=== PATIENT | male | born 1930 | race Two or more races ===

== ENCOUNTER 2017-03-27 11:07 | Emergency (ER) | payer OTHER ==
[~2017-03-27] VITALS: Ht 180.3 cm; Wt 78.0 kg
[~2017-03-27 11:07] MED LIST: ACET500T33 PO; ASPI-612 PO; CYAN10002 IJ; FENO145T PO; FLUT16SP2 NS; HYDR25TA9 PO; METO100T2 PO; PANT40TA3 PO
[2017-03-27 11:50] VITALS: BP 113/69
[2017-03-27 12:17] LABS: BASO # 0.1 x10^3/uL (0.0-0.2); BASO % 1 % (0-3); EOS % 2 % (0-3); HEMATOCRIT 46.9 % (39.0-53.0); HEMOGLOBIN 15.7 g/dL (13.0-17.5); LYMPH % 13 % (24-48); MEAN CORPUSCULAR HEMOGLOBIN 30 pg (25-35); MEAN CORPUSCULAR HGB CONC 34 g/dL (31-37); MEAN CORPUSCULAR VOLUME 90 fL (79-100); MONO % 8 % (0-9); NEUT % 77 % (31-73); PLATELET COUNT 132 x10^3/uL (140-400); RED BLOOD COUNT 5.19 x10^6/uL (4.30-5.70); RED CELL DISTRIBUTION WIDTH 13.3 % (11.5-14.5); WHITE BLOOD COUNT 8.1 x10^3/uL (4.0-11.0)
[2017-03-27 12:20] LABS: BILIRUBIN,URINE SMALL (NEG); GLUCOSE,URINE NEGATIVE (NEG); NITRITE,URINE NEGATIVE (NEG); PROTEIN,URINE NEGATIVE (NEG-TRACE); UROBILINOGEN,URINE 0.2 mg/dL (0.2 mg/dL)
[2017-03-27 12:26] LABS: BACTERIA,URINE 0 /HPF (0-FEW); RBC,URINE 0 /HPF (0-2); SQUAMOUS EPITHELIAL CELL,UR FEW /LPF; WBC,URINE 0 /HPF (0-4)
[2017-03-27 12:26] LABS: CALCIUM 9.4 mg/dL (8.5-10.1); CREATININE 1.2 mg/dL (0.7-1.3); GFR 57.3; POTASSIUM 4.6 mmol/L (3.5-5.1)
--- NOTE | 2017-03-27 12:28 | RAD ---
Portable chest, 03/27/2017: History: Weakness Comparison is made to a study from 03/03/2012. The heart size and pulmonary vascularity are normal. No pulmonary infiltrates are seen. There is no evidence of pleural fluid. There is a suggestion of a tiny nodule in the left base laterally. Mild spurring is present in the spine. IMPRESSION: 1. No acute cardiopulmonary abnormality is detected. 2. Possible tiny left basilar pulmonary nodule. Radiographic follow-up is suggested.
[2017-03-27 12:33] LABS: ALBUMIN 3.8 g/dL (3.4-5.0); ALBUMIN/GLOBULIN RATIO 1.3 (1.0-1.7); TOTAL PROTEIN 6.7 g/dL (6.4-8.2)
--- NOTE | 2017-03-27 12:57 | RAD ---
CT of the head without contrast, 03/27/2017: History: Weakness, fall There is moderate cerebral atrophy. There are mild deep white matter lucencies compatible with chronic ischemic change. The ventricles are mildly enlarged on a compensatory basis. There is no shift of the midline structures. There is no evidence of acute intracranial hemorrhage or mass effect. A small amount of fluid is noted in the right mastoid air cells, presumably on an inflammatory basis. IMPRESSION: 1. Cerebral atrophy. 2. Mild bilateral deep white matter lucencies compatible with chronic ischemic change. 3. No acute intracranial abnormality is detected. PQRS Compliance Statement: One or more of the following individualized dose reduction techniques were utilized for this examination: 1. Automated exposure control 2. Adjustment of the mA and/or kV according to patient size 3. Use of iterative reconstruction technique
--- NOTE | 2017-03-27 13:11 | ED.ADGEN ---
Past Medical History Past Medical History: High Cholesterol, Hypertension, Pancreatitis Past Surgical History: Cholecystectomy, Tonsillectomy Alcohol Use: Heavy Drug Use: None Adult General Chief Complaint Chief Complaint: OTHER COMPLAINTS HPI HPI Patient is a 86 year old man, history of hypertension, hypercholesterolemia, who is not currently taking any medications, who presents to the emergency department with a complaint of weakness. Patient states that he "slid off the couch", around 5:30 in the morning, he states that he just "rolled over in my sleep and then slid right off, and then just kept sleeping on the floor". He denied any weakness of the time, however on further questioning states that he did maybe have some weakness in his legs. He states that he is feeling fine at this time, states however that he was having difficulty getting up off the floor this morning. Patient's at bedside states that she woke up and found him lying on the floor and was unable to get him to his feet. Patient states he did not strike his head or neck, denies any loss of consciousness, any chest pain, short of breath, nausea or vomiting, states that he will have an episode of loose stool about once a day, but no blood in the stool. He denies any urinary complaints, any vision changes, any injuries, or any similar to previously. He states had a fall about a year ago when he was attempting to carry multiple bottles of soda up the stairs where he fell down 9 stairs and had a head injury. He denies any injuries since that time. Patient's states that that they spoke with the patient's primary care provider, Dr. Carlson , and were told told to come to the ED for additional evaluation. Review of Systems Review of Systems Constitutional: Denies fever or chills. [] Eyes: Denies change in visual acuity. [] HENT: Denies nasal congestion or sore throat. [] Respiratory: Denies cough or shortness of breath. [] Cardiovascular: Denies chest pain or edema. [] GI: Denies abdominal pain, nausea, vomiting, bloody stools or diarrhea. [] : Denies dysuria. [] Musculoskeletal: Denies back pain or joint pain. [] Integument: Denies rash. [] Neurologic: Denies headache or sensory changes. [Weakness in the lower extremities.] Endocrine: Denies polyuria or polydipsia. [] Lymphatic: Denies swollen glands. [] Psychiatric: Denies depression or anxiety. [] Allergies Allergies Allergies Coded Allergies Type Severity Reaction Last Updated Verified Penicillins Allergy Intermediate 01/14/14 No Physical Exam Physical Exam Constitutional: Well developed, well nourished, no acute distress, non-toxic appearance. [] HENT: Normocephalic, atraumatic, bilateral external ears normal, oropharynx moist, no oral exudates, nose normal. [] Eyes: PERRLA, EOMI, conjunctiva normal, no discharge. [] Neck: Normal range of motion, no tenderness, supple, no stridor. [] Cardiovascular:Heart rate regular rhythm, no murmur, S1, S2, rubs or gallops. [] Lungs & Thorax: Bilateral breath sounds clear to auscultation, no wheezing, rhonchi, rales. No chest or crepitus or tenderness. [] Abdomen: Bowel sounds normal, soft, no tenderness, no rebound, rigidity, no guarding, no masses, no pulsatile masses. [] Skin: Warm, dry, no erythema, no rash. [] Back: No tenderness, no CVA tenderness. [] Extremities: No tenderness, no cyanosis, no clubbing, ROM intact, no edema. Negative Homans sign.[] Neurologic: Alert and oriented X 3, normal motor function, patient does have difficulty sitting upright and standing upright well-seated, did ambulate into the emergency department, normal sensory function, no focal deficits noted. [] Psychologic: Affect normal, judgement normal, mood normal. [] Current Patient Data Vital Signs Vital Signs Date Time Temp Pulse Resp B/P (MAP) Pulse Ox O2 Delivery O2 Flow Rate FiO2 03/27/17 11:50 88 20 113/69 (84) 96 Room Air 03/27/17 11:31 98.2 98.2 Lab Values Laboratory Tests Test 03/27/17 12:00 03/27/17 12:09 White Blood Count 8.1 x10^3/uL (4.0-11.0) Red Blood Count 5.19 x10^6/uL (4.30-5.70) Hemoglobin 15.7 g/dL (13.0-17.5) Hematocrit 46.9 % (39.0-53.0) Mean Corpuscular Volume 90 fL (79-100) Mean Corpuscular Hemoglobin 30 pg (25-35) Mean Corpuscular Hemoglobin Concent 34 g/dL (31-37) Red Cell Distribution Width 13.3 % (11.5-14.5) Platelet Count 132 x10^3/uL (140-400) L Neutrophils (%) (Auto) 77 % (31-73) H Lymphocytes (%) (Auto) 13 % (24-48) L Monocytes (%) (Auto) 8 % (0-9) Eosinophils (%) (Auto) 2 % (0-3) Basophils (%) (Auto) 1 % (0-3) Neutrophils # (Auto) 6.3 x10^3uL (1.8-7.7) Lymphocytes # (Auto) 1.0 x10^3/uL (1.0-4.8) Monocytes # (Auto) 0.6 x10^3/uL (0.0-1.1) Eosinophils # (Auto) 0.1 x10^3/uL (0.0-0.7) Basophils # (Auto) 0.1 x10^3/uL (0.0-0.2) Sodium Level 142 mmol/L (136-145) Potassium Level 4.6 mmol/L (3.5-5.1) Chloride Level 105 mmol/L (98-107) Carbon Dioxide Level 30 mmol/L (21-32) Anion Gap 7 (6-14) Blood Urea Nitrogen 17 mg/dL (8-26) Creatinine 1.2 mg/dL (0.7-1.3) Estimated GFR (Cockcroft-Gault) 57.3 BUN/Creatinine Ratio 14 (6-20) Glucose Level 105 mg/dL (70-99) H Lactic Acid Level 0.9 mmol/L (0.4-2.0) Calcium Level 9.4 mg/dL (8.5-10.1) Total Bilirubin 1.0 mg/dL (0.2-1.0) Aspartate Amino Transferase (AST) 23 U/L (15-37) Alanine Aminotransferase (ALT) 23 U/L (16-63) Alkaline Phosphatase 68 U/L (46-116) Troponin I Quantitative < 0.017 ng/mL (0.000-0.055) IJ-Mnl-O-Type Natriuretic Peptide 803 pg/mL (0-449) H Total Protein 6.7 g/dL (6.4-8.2) Albumin 3.8 g/dL (3.4-5.0) Albumin/Globulin Ratio 1.3 (1.0-1.7) Urine Collection Type Unknown Urine Color Claudia Urine Clarity Cloudy Urine pH 5.0 Urine Specific [place] 1.025 Urine Protein Negative mg/dL (NEG-TRACE) Urine Glucose (UA) Negative mg/dL (NEG) Urine Ketones (Stick) Negative mg/dL (NEG) Urine Blood Negative (NEG) Urine Nitrite Negative (NEG) Urine Bilirubin Small (NEG) Urine Urobilinogen Dipstick 0.2 mg/dL (0.2 mg/dL) Urine Leukocyte Esterase Negative (NEG) Urine RBC 0 /HPF (0-2) Urine WBC 0 /HPF (0-4) Urine Squamous Epithelial Cells Few /LPF Urine Bacteria 0 /HPF (0-FEW) Laboratory Tests 03/27/17 12:00 Laboratory Tests 03/27/17 12:00 EKG EKG EC: Sinus arrhythmia, heart rate 74 beats/minute, left axis deviation, QTC of 422, [place] of 204, QRS of 100, contour abnormality is noted in the inferior leads, with Q waves noted, no ST elevations or depressions. Abnormal ECG, does not meet STEMI criteria. As interpreted by me. Radiology/Procedures Radiology/Procedures [][facility] [address] [place] [address] IMAGING REPORT Signed PATIENT: JOSE HUGHES ACCOUNT: [id number] : 1930 LOCATION: ER AGE: 86 SEX: M EXAM STATUS: PRE ER ORD. PHYSICIAN: MARIE OSUNA DO REASON: Weakness PROCEDURE: PORTABLE CHEST 1V Portable chest, 03/27/2017: History: Weakness Comparison is made to a study from 03/03/2012. The heart size and pulmonary vascularity are normal. No pulmonary infiltrates are seen. There is no evidence of pleural fluid. There is a suggestion of a tiny nodule in the left base laterally. Mild spurring is present in the spine. IMPRESSION: 1. No acute cardiopulmonary abnormality is detected. 2. Possible tiny left basilar pulmonary nodule. Radiographic follow-up is suggested. DICTATED and SIGNED BY: NESHA SANDERS MD DATE: 03/27/17 1224 CC: MARIE OSUNA DO ~ Impressions: [facility] [address] [place] [address] IMAGING REPORT Signed PATIENT: JOSE HUGHES ACCOUNT: [id number] : 1930 LOCATION: ER AGE: 86 SEX: M EXAM STATUS: REG ER ORD. PHYSICIAN: MARIE OSUNA DO REASON: Weakness PROCEDURE: CT HEAD WO CONTRAST CT of the head without contrast, 03/27/2017: History: Weakness, fall There is moderate cerebral atrophy. There are mild deep white matter lucencies compatible with chronic ischemic change. The ventricles are mildly enlarged on a compensatory basis. There is no shift of the midline structures. There is no evidence of acute intracranial hemorrhage or mass effect. A small amount of fluid is noted in the right mastoid air cells, presumably on an inflammatory basis. IMPRESSION: 1. Cerebral atrophy. 2. Mild bilateral deep white matter lucencies compatible with chronic ischemic change. 3. No acute intracranial abnormality is detected. PQRS Compliance Statement: One or more of the following individualized dose reduction techniques were utilized for this examination: 1. Automated exposure control 2. Adjustment of the mA and/or kV according to patient size 3. Use of iterative reconstruction technique DICTATED and SIGNED BY: NESHA SANDERS MD DATE: 03/27/17 1252 CC: MARIE OSUNA DO; CATHY CARLSON MD ~ Course & Med Decision Making Course & Med Decision Making Pertinent Labs and Imaging studies reviewed. (See chart for details) Patient well-appearing in the emergency department, did ambulate into the emergency department without issue. He did have some difficulty sitting upright for my examination. He states he did feel weak in his lower extremities earlier but this is resolved. He does admit to sliding off the couch, denies striking his head or neck, denies any focal weakness currently as stated. No previous traumatic injury, and no complaints at this time. After discussion with patient and at bedside, patient is agreeable receiving laboratory studies and imaging of the head and chest. Imaging and laboratory studies did not reveal any acutely concerning findings. However, based on the patient's report of weakness with unclear etiology, I did speak with the patient's primary care provider, Dr. Carlson, who recommended the patient be admitted to the hospital overnight for continued observation and monitoring. I did discuss this recommendation at length with the patient and family at bedside, patient is adamant that he will not be admitted to the hospital this time, I did discuss that there is unclear etiology of his symptoms, and that we do have concerns that he go home and have an adverse event, patient states "if I'm going to go home and then I I will go home and ". As stated, no concerning findings were identified during the patient's examination, patient did ambulate without difficulty in the ED, ambulatory trial with a heart rate in the 80s to 90s, oxygen saturations in the mid 90s, without recurrence of symptoms. I did update Dr. Carlson regarding the patient's decision, he requests the patient be instructed to follow-up with him in the office, and return to the ED if concerning symptoms develop. Patient did voice understanding and agreement with this plan, and we discussed concerning symptoms that would prompt return to the ED. Patient with at bedside voice understanding with these instructions as well. Patient discharged home with family in stable condition with plan and precautions as stated above. Dragon Disclaimer Dragon Disclaimer This electronic medical record was generated, in whole or in part, using a voice recognition dictation system. Departure Impression: Primary Impression: Weakness Disposition: 01 HOME, SELF-CARE Condition: STABLE MARIE OSUNA DO Mar 27, 2017 13:11
--- NOTE | 2017-03-28 06:07 | EKG ---
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
== END 2017-03-27 14:10 | disposition home or self-care (01) ==
LOC: ER 11:07
DX: R53.1 Weakness (principal); E78.00 Pure hypercholesterolemia, unspecified; I10 Essential (primary) hypertension; F10.10 Alcohol abuse, uncomplicated; Z90.49 Acquired absence of other specified parts of digestive tract; Z88.0 Allergy status to penicillin
CPT/HCPCS: 36415; 70450; 71010; 80053; 81001; 83605; 83880; 84484; 85025; 93005; 99285-25

== ENCOUNTER 2018-11-08 17:05 | Inpatient (IN) | payer OTHER ==
[~2018-11-08] VITALS: Ht 180.3 cm; Wt 67.1 kg
[~2018-11-08 17:05] MED LIST changes: +DONE10TA7 PO; +HYDR-2145 PO; -HYDR25TA9 PO; +MEMA10TA PO; -METO100T2 PO; +METO100T7 PO; +THIA100T22 PO
[2018-11-08 17:52] LABS: BILIRUBIN,URINE NEGATIVE (NEG); CLARITY,URINE CLEAR; COLOR,URINE YELLOW; NITRITE,URINE NEGATIVE (NEG); PH,URINE 7.5; PROTEIN,URINE NEGATIVE (NEG-TRACE)
[2018-11-08 18:00] LABS: BACTERIA,URINE 0 /HPF (0-FEW); RBC,URINE 0 /HPF (0-2); WBC,URINE RARE /HPF (0-4)
[2018-11-08 18:02] LABS: BASO % 1 % (0-3); EOS # 0.2 x10^3/uL (0.0-0.7); EOS % 3 % (0-3); HEMATOCRIT 46.5 % (39.0-53.0); HEMOGLOBIN 15.4 g/dL (13.0-17.5); LYMPH # 0.8 x10^3/uL (1.0-4.8); LYMPH % 16 % (24-48); MEAN CORPUSCULAR HEMOGLOBIN 31 pg (25-35); MEAN CORPUSCULAR HGB CONC 33 g/dL (31-37); MEAN CORPUSCULAR VOLUME 93 fL (79-100); MONO # 0.7 x10^3/uL (0.0-1.1); MONO % 13 % (0-9); NEUT # 3.4 x10^3uL (1.8-7.7); NEUT % 67 % (31-73); PLATELET COUNT 132 x10^3/uL (140-400); RED BLOOD COUNT 5.01 x10^6/uL (4.30-5.70); RED CELL DISTRIBUTION WIDTH 13.5 % (11.5-14.5); WHITE BLOOD COUNT 5.1 x10^3/uL (4.0-11.0)
[2018-11-08 18:10] LABS: CALCIUM 9.2 mg/dL (8.5-10.1); GFR 70.4
[2018-11-08 18:16] LABS: ALBUMIN 3.4 g/dL (3.4-5.0); ALBUMIN/GLOBULIN RATIO 1.2 (1.0-1.7); TOTAL BILIRUBIN 0.9 mg/dL (0.2-1.0); TOTAL PROTEIN 6.3 g/dL (6.4-8.2)
[2018-11-08] MEDS ORDERED: IV NORMAL SALINE 500ML BAG 500 ML IV ONE ×2 (18:30→21:00)
[2018-11-08 18:33] LABS: MAGNESIUM 2.1 mg/dL (1.8-2.4)
[2018-11-08 18:42] LABS: PROTHROMBIN TIME PATIENT 13.8 SEC (11.7-14.0)
--- NOTE | 2018-11-08 19:14 | RAD ---
CT HEAD WO CONTRAST History: Fall, altered mental status Comparison: July 20, 2018; March 27, 2017 Technique: Noncontrast CT imaging was performed of the head. Exposure: One or more of the following individualized dose reduction techniques were utilized for this examination: 1. Automated exposure control 2. Adjustment of the mA and/or kV according to patient size 3. Use of iterative reconstruction technique. Findings: No acute hyperdense intracranial hemorrhage is identified. There is again generalized supratentorial atrophy, ventriculomegaly likely due to atrophy. There is again prominence of bifrontal subarachnoid spaces, difficult to exclude small bifrontal subdural effusions/chronic hematomas although stable appearance dating back to March 2017 exam. There is again scattered ill-defined low-density of the supratentorial parenchyma bilaterally. There is no new midline shift or intra-axial mass effect. There is some density of the external auditory canals bilaterally more likely due to cerumen. Mastoid air cells and visualized paranasal sinuses are overall aerated. No acute calvarial abnormality is identified. Impression: 1. Findings are stable compared with older exams, no evidence of acute hyperdense intracranial hemorrhage. There is again supratentorial atrophy. Small bifrontal subdural effusions/chronic hematomas are difficult to exclude although unchanged dating back to 2016. Ill-defined low-density of the supratentorial parenchyma is likely due to chronic microvascular ischemic disease. Electronically signed by: Sunday Gallagher MD (11/08/2018 7:11 PM) [facility]
[2018-11-08] MEDS ORDERED: QUEtiapine 25 MG TABLET. PO STA (20:42)
--- NOTE | 2018-11-08 20:49 | PHYS DOC ---
Past Medical History Past Medical History: Dementia, High Cholesterol, Hypertension, Pancreatitis Past Surgical History: Cholecystectomy, Tonsillectomy Alcohol Use: Heavy Drug Use: None Adult General Chief Complaint Chief Complaint: WEAKNESS/GENERALIZED HPI HPI Patient is a 88 year old M P/W CC OF WEAKNESS TROOUBLE AMBULATING HAS BEEN STOOPED OVER FELL A FEW DAYS AGO HX BROWN BY DEMENTIA FINALLY BROUGHT HIM TO ER NO COUGH NO FEVER NO CP HE SAYS HE FEELS FINE ADDITIONAL HX OBTAINED FROM MALONEY, PT NEEDS GERIPSYCH ULTIMATELY HAS BEEN STOOLING AND URINATING EVERYWHERE HARD TO TAKE CARE OF AT HOME. OK TO ADMIT HERE FOR FURTHER EVAL AND PLACEMENT Review of Systems Review of Systems BROWN BY DEMENTIA Current Medications Current Medications Current Medications Medications (Trade) Dose Ordered Sig/Marylou Start Time Stop Time Status Last Admin Dose Admin Quetiapine Fumarate (SEROquel) 25 mg 1X STAT 11/08/18 20:42 11/08/18 20:43 UNV Sodium Chloride 500 ml @ 500 mls/hr 1X ONCE 11/08/18 18:30 11/08/18 19:29 DC 11/08/18 18:36 500 MLS/HR Allergies Allergies Allergies Coded Allergies Type Severity Reaction Last Updated Verified Penicillins Allergy Intermediate 01/14/14 No Physical Exam Physical Exam Constitutional: Well developed, well nourished, INTERMITTENTLY AGITATED, non- toxic appearance. [] HENT: Normocephalic, atraumatic, bilateral external ears normal, oropharynx moist, no oral exudates, nose normal. [] Eyes: PERRLA, EOMI, conjunctiva normal, no discharge. [] Neck: Normal range of motion, no tenderness, supple, no stridor. [] Cardiovascular:Heart rate regular rhythm, no murmur [] Lungs & Thorax: Bilateral breath sounds clear to auscultation [] Abdomen: Bowel sounds normal, soft, no tenderness, no masses, no pulsatile masses. [] Skin: Warm, dry, no erythema, no rash. [] Back: No tenderness, no CVA tenderness. [] Extremities: No tenderness, no cyanosis, no clubbing, ROM intact, no edema. [] Neurologic: Alert and oriented X 3, normal motor function, normal sensory function, no focal deficits noted. [] Psychologic: Affect normal, judgement normal, mood normal. [] Current Patient Data Vital Signs Vital Signs Date Time Temp Pulse Resp B/P (MAP) Pulse Ox O2 Delivery O2 Flow Rate FiO2 11/08/18 19:07 86 16 100 11/08/18 17:35 98.7 151/93 (112) Room Air 98.7 Lab Values Laboratory Tests Test 11/08/18 17:29 11/08/18 17:50 Urine Collection Type Void Urine Color Yellow Urine Clarity Clear Urine pH 7.5 Urine Specific [place] 1.010 Urine Protein Negative mg/dL (NEG-TRACE) Urine Glucose (UA) Negative mg/dL (NEG) Urine Ketones (Stick) Negative mg/dL (NEG) Urine Blood Negative (NEG) Urine Nitrite Negative (NEG) Urine Bilirubin Negative (NEG) Urine Urobilinogen Dipstick 1.0 mg/dL (0.2 mg/dL) Urine Leukocyte Esterase Negative (NEG) Urine RBC 0 /HPF (0-2) Urine WBC Rare /HPF (0-4) Urine Bacteria 0 /HPF (0-FEW) White Blood Count 5.1 x10^3/uL (4.0-11.0) Red Blood Count 5.01 x10^6/uL (4.30-5.70) Hemoglobin 15.4 g/dL (13.0-17.5) Hematocrit 46.5 % (39.0-53.0) Mean Corpuscular Volume 93 fL (79-100) Mean Corpuscular Hemoglobin 31 pg (25-35) Mean Corpuscular Hemoglobin Concent 33 g/dL (31-37) Red Cell Distribution Width 13.5 % (11.5-14.5) Platelet Count 132 x10^3/uL (140-400) L Neutrophils (%) (Auto) 67 % (31-73) Lymphocytes (%) (Auto) 16 % (24-48) L Monocytes (%) (Auto) 13 % (0-9) H Eosinophils (%) (Auto) 3 % (0-3) Basophils (%) (Auto) 1 % (0-3) Neutrophils # (Auto) 3.4 x10^3uL (1.8-7.7) Lymphocytes # (Auto) 0.8 x10^3/uL (1.0-4.8) L Monocytes # (Auto) 0.7 x10^3/uL (0.0-1.1) Eosinophils # (Auto) 0.2 x10^3/uL (0.0-0.7) Basophils # (Auto) 0.0 x10^3/uL (0.0-0.2) Prothrombin Time 13.8 SEC (11.7-14.0) Prothrombin Time INR 1.1 (0.8-1.1) Sodium Level 139 mmol/L (136-145) Potassium Level 4.0 mmol/L (3.5-5.1) Chloride Level 102 mmol/L (98-107) Carbon Dioxide Level 26 mmol/L (21-32) Anion Gap 11 (6-14) Blood Urea Nitrogen 19 mg/dL (8-26) Creatinine 1.0 mg/dL (0.7-1.3) Estimated GFR (Cockcroft-Gault) 70.4 BUN/Creatinine Ratio 19 (6-20) Glucose Level 89 mg/dL (70-99) Calcium Level 9.2 mg/dL (8.5-10.1) Magnesium Level 2.1 mg/dL (1.8-2.4) Total Bilirubin 0.9 mg/dL (0.2-1.0) Aspartate Amino Transferase (AST) 35 U/L (15-37) Alanine Aminotransferase (ALT) 21 U/L (16-63) Alkaline Phosphatase 70 U/L (46-116) Troponin I Quantitative 0.020 ng/mL (0.000-0.055) RS-Mwt-R-Type Natriuretic Peptide 4136 pg/mL (0-449) H Total Protein 6.3 g/dL (6.4-8.2) L Albumin 3.4 g/dL (3.4-5.0) Albumin/Globulin Ratio 1.2 (1.0-1.7) Lipase 203 U/L (73-393) Laboratory Tests 11/08/18 17:50 Laboratory Tests 11/08/18 17:50 EKG EKG []NSR RATE 84 NO ACUTE ISCHEMIC CHANGES NOTED. NO STEMI. Radiology/Procedures Radiology/Procedures [] Impressions: CXR WIRST XRAY MY READ NEG HEAD NOTED READ STABLE SINCE 2017 Course & Med Decision Making Course & Med Decision Making Pertinent Labs and Imaging studies reviewed. (See chart for details) []SEE HPI 845 PM: HR 120 AFTER BEING TOLD HE IS BEING ADMITTED. PT WILL GET REPEAT EKG SEROQUEL AND IV FLUIDS. Dragon Disclaimer Dragon Disclaimer This electronic medical record was generated, in whole or in part, using a voice recognition dictation system. Departure Departure Impression: Primary Impression: Weakness Disposition: ADMITTED INPATIENT Admitting Physician: Cathy Maloney Condition: STABLE Referrals: CATHY MALONEY MD (PCP) RACHELE EMANUEL MD Nov 08, 2018 20:49
[2018-11-08] MEDS ORDERED: ASPIRIN CHEWABLE 81 MG TABLET. PO ONE (21:30)
[2018-11-09] VITALS (7 sets, daily range): BP systolic 95–120; BP diastolic 52–75
[2018-11-09] MEDS ORDERED: ACETAMINOPHEN 500 MG TABLET PO PRN
--- NOTE | 2018-11-09 07:30 | EKG ---
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
--- NOTE | 2018-11-09 07:31 | EKG ---
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 Electronically Signed On 11-16-2018 11:27:29 CDT by Philipp Khan
--- NOTE | 2018-11-09 07:55 | EKG ---
[facility] [address] [place] [address] Test Date: 2018-11-08 Test Time: 21:23:37 Pat Name: JOSE HUGHES Department: Room: 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 Electronically Signed On 11-16-2018 11:29:38 CDT by Philipp Khan
--- NOTE | 2018-11-09 07:55 | RAD ---
Examination: PORTABLE CHEST 1V History: ER PATIENT. WEAKNESS, TRAUMA FALL. PRIORS XRAY. Comparison/Correlation: 07/20/2018 frontal view chest Findings: Frontal view chest was obtained. Heart size and pulmonary vasculature normal. No infiltrate or pleural effusion. No pneumothorax. No acute bony process. Slightly high density of the bony structures diffusely is suggested. Impression: No active disease. Electronically signed by: Crescencio Cuevas MD (11/09/2018 7:51 AM) [facility]
--- NOTE | 2018-11-09 08:30 | RAD ---
Examination: WRIST 3V RIGHT History: ER PATIENT. TRAUMA FALL. PAIN IN THE RIGHT WRIST. NO PRIORS Comparison/Correlation: None Findings: A total 3 images of the right wrist were obtained. Osteopenia noted. Transverse lucency involving the distal radial metaphysis which extends intra-articularly into the radiocarpal joint is present. This appears to the somewhat well-corticated. Cardiopericardial complex region calcification is present. Impression: Osteopenia noted. Distal radial lucency extending into the radiocarpal joint. This appears relatively well-corticated as would be expected of old or nonunion fracture or post operative change. Correlate with trauma history. Consider further evaluation with MRI if able and if occult process is a persistent concern. Electronically signed by: Crescencio Cuevas MD (11/09/2018 8:27 AM) [facility]
--- NOTE | 2018-11-09 08:50 | NUR ---
Pts Keysha called. Verified with her that pt doesnt take any home meds.
--- NOTE | 2018-11-09 10:43 | PDOC ---
Provider Note Provider Note Patient seen. History and Physical dictated. See dictation #[id number] CATHY MALONEY MD Nov 09, 2018 10:43
[2018-11-09] MEDS: IV NORMAL SALINE 1000ML BAG 1,000 ML IV SCH ×2 (11:00→19:49)
--- NOTE | 2018-11-09 11:32 | HP ---
ADMIT DATE: 11/08/2018 HISTORY OF PRESENT ILLNESS: This 88-year-old male, who has history of severe dementia with behavioral disturbances and who has had weakness that is getting worse and dizziness fell a few days ago, he has had multiple falls and also has had frequent episodes where he urinates at different places in the house as well as has bowel movements in different places. He has been tried on Aricept and other medications in the past, but he has refused to take any medications. He has been steadily losing weight. The patient fell a few days ago and since then he has become weaker and he is staying bedbound and not able to move. Because of that, the patient was sent to the Emergency Room. In the Emergency Room, the patient was noted to be very weak and with change in mental status as well as weakness and fall. The patient was admitted for further evaluation and management. His BUN was 19 and creatinine 1.0 and even though the BNP was 4136, the patient has been hypotensive and dehydrated. The patient was given IV fluids in the Emergency Room. His WBC count was 5.1, hemoglobin 15.4, INR 1.1. Urinalysis was unremarkable. CT scan of head shows old changes including likely from his previous fall and head injury including history of subdural hematomas, but no acute changes noted. Chest x-ray is unremarkable and x-ray of the wrist show osteopenia. The patient is quite confused and unable to provide any significant information. I called his at home on 2 different occasions, but I am unable to get hold of her and unable to leave a message. SYSTEMS REVIEW: The patient denies any chest pains or dyspnea, but he is laughing all the time and unable to provide any significant information. He talks about falls, but he is not sure that he could give me any significant information. He is not sure of any trauma to his back or head. He is very weak and he is having hard time sitting up and he is not even able to turn himself in the bed. Systems review as noted in the history of present illness; he denies any diarrhea, abdominal pain, cold, cough, congestion, fever, chills or dysuria, but he is again a very poor historian, unable to do full systems review. PAST MEDICAL HISTORY: The patient was last admitted here on 07/20/2018. 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 SURGICAL HISTORY: The patient has a history of intracranial hemorrhage, colonoscopy with biopsy, EGD with biopsy, cholecystectomy. ALLERGIES: The patient is allergic to PENICILLIN. FAMILY HISTORY: Brother had alcoholism. Father had hypertension. Mother had hypertension and pneumonia. SOCIAL HISTORY: Past history of smoking. No history of drug abuse. The patient used to drink alcohol very heavily. OBJECTIVE: VITAL SIGNS: Temperature 98.8, pulse 90 per minute, respirations 18 per minute, blood pressure was 118/75 and this morning it is 95/60 mmHg. GENERAL: The patient is alert, confused and not in acute distress. He is chronically ill. He is malnourished and very weak. EYES: Pupils reacting to light. Conjunctivae pale pink. Sclerae muddy. HEENT: Unremarkable. SKIN: Warm and dry. There is no cyanosis. Skin turgor decreased. NECK: Supple. JVP normal. No thyromegaly. Trachea midline. LUNGS: Decreased breath sounds at bases. CARDIOVASCULAR SYSTEM: S1 and S2 regular. ABDOMEN: Soft, nontender, no guarding, no rigidity. Bowel sounds present. EXTREMITIES: No edema. CENTRAL NERVOUS SYSTEM: The patient is quite confused, very weak, unable to even move in sideways in the bed, not following all the commands. LABORATORY FINDINGS: As noted earlier. IMPRESSION: 1. Change in mental status. 2. Acute renal failure. 3. Dementia with behavioral disturbances. 4. Fall. 5. Physical deconditioning. 6. Pernicious anemia. 7. Gastroesophageal reflux disease with esophagitis. 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 9. History of intracranial hemorrhage. 10. Weight loss. 11. Diabetes mellitus without complication. 12. History of hyperlipidemia. 13. History of diverticulosis. 14. History of severe protein-calorie malnutrition, currently albumin is 3.4. PLAN: I will restart IV fluids. Consult Dr. Montiel for rehab evaluation and management. Start PT, OT. Monitor him closely. Depending on his status, he may need to go to a intermediate unit or a [facility]. Prognosis of this patient is extremely poor. We will try to reach again and discuss with the patient's . CATHY MALONEY MD DR: Vito JOB#: [id number] / [id number]
--- NOTE | 2018-11-09 14:52 | NUR ---
SW consulted for [facility]/SNF placement. Chart reviewed and DW RN. Pt is known to SW from previous admission. Pt seen by PAT team today and currently is not meeting criteria for [facility] placement. So far no behaviors noted by RN. PT/OT pending. SW will await for PT/OT recommendation to asses skilled needs. Will continue to follow.
--- NOTE | 2018-11-09 18:21 | NUR ---
Behavioral Note: Pt in pleasant mood. Pt likes to joke around in a sarcastic way, and it is not immediately apparent that he is not alert and oriented x4. Pt remains consistently alert to self and place, although becomes forgetful/confused about time and situation. He is incontinent of bowel and bladder and seems unaware of urge to go. He is easily redirectable with positive redirection and responds well to humor. His attention is easily distracted and he is a poor historian.
--- NOTE | 2018-11-09 18:28 | NUR ---
Pt declined IVF. He is taking fluids PO well.
--- NOTE | 2018-11-09 22:35 | NUR ---
Patient sitting in chair. Continues to refuse IV fluids despite education provided. Reports that he needs to go to the bathroom and change his clothes. Continues to be resistive to staff assisting him into the bathroom. Began to raise voice when telling staff that he did not need help after this nurse provided education that he would need to be assisted into the bathroom due to his fall history.
[2018-11-10 03:00] VITALS: BP 124/74
[2018-11-10 04:26] LABS: BASO % 1 % (0-3); EOS # 0.2 x10^3/uL (0.0-0.7); EOS % 4 % (0-3); HEMATOCRIT 43.7 % (39.0-53.0); HEMOGLOBIN 14.7 g/dL (13.0-17.5); LYMPH # 1.3 x10^3/uL (1.0-4.8); LYMPH % 27 % (24-48); MEAN CORPUSCULAR HEMOGLOBIN 31 pg (25-35); MEAN CORPUSCULAR HGB CONC 34 g/dL (31-37); MEAN CORPUSCULAR VOLUME 92 fL (79-100); MONO # 0.7 x10^3/uL (0.0-1.1); MONO % 14 % (0-9); NEUT # 2.5 x10^3uL (1.8-7.7); NEUT % 54 % (31-73); PLATELET COUNT 142 x10^3/uL (140-400); RED BLOOD COUNT 4.74 x10^6/uL (4.30-5.70); RED CELL DISTRIBUTION WIDTH 13.5 % (11.5-14.5); WHITE BLOOD COUNT 4.6 x10^3/uL (4.0-11.0)
[2018-11-10 04:54] LABS: ALBUMIN 3.2 g/dL (3.4-5.0); ALBUMIN/GLOBULIN RATIO 1.1 (1.0-1.7); CALCIUM 9.1 mg/dL (8.5-10.1); GFR 70.4; MAGNESIUM 2.1 mg/dL (1.8-2.4); POTASSIUM 3.8 mmol/L (3.5-5.1); TOTAL BILIRUBIN 0.6 mg/dL (0.2-1.0); TOTAL PROTEIN 6.2 g/dL (6.4-8.2)
[2018-11-10] MEDS: IV NORMAL SALINE 1000ML BAG 1,000 ML IV SCH ×2 (05:21→17:00)
[2018-11-10 07:00] VITALS: BP 125/79
--- NOTE | 2018-11-10 08:59 | NUR ---
DEB following pt. PT/OT recommends SNU. Spoke with pt's via phone and discussed SNU vs LTC and insurance coverage. Pt's stated she is not looking into LTC placement at this time but interested in SNU. Pt's chose [facility]. SW phoned and faxed referral to [facility]. Pt acceptance and admission pending. Pt's aware insurance will need to approve SNU before dc. Will continue to follow.
--- NOTE | 2018-11-10 09:04 | PDOC ---
PROGRESS NOTES Subjective Subjective No new complaints. Objective Objective Vital Signs Date Time Temp Pulse Resp B/P (MAP) Pulse Ox O2 Delivery O2 Flow Rate FiO2 11/10/18 07:00 98.2 77 14 125/79 (94) 98 Room Air 98.2 Intake and Output 11/10/18 07:00 Intake Total 915 ml Balance 915 ml Intake Oral 915 ml # Voids 1 Physical Exam Physical Exam He is supine in bed and awake with breakfast tray at bedside and he states that he usually goes to sleep at 2 Am and wakes up at 10 AM. He got up and walked wiht roller walker yesterday without any difficulty. Assessment Assessment Problems Medical Problems: (1) Weakness Status: Acute Plan Plan of Care To SNF for continued physical and occupational therapy follow if he qualifies with emphasis on safety using roller walker with mobility and self care and also to work on advanced transfers. Comment Review of Relevant I have reviewed the following items dar (where applicable) has been applied. Labs Laboratory Tests Test 11/08/18 17:29 11/08/18 17:50 11/10/18 02:35 Urine Collection Type Void Urine Color Yellow Urine Clarity Clear Urine pH 7.5 Urine Specific [place] 1.010 Urine Protein Negative mg/dL (NEG-TRACE) Urine Glucose (UA) Negative mg/dL (NEG) Urine Ketones (Stick) Negative mg/dL (NEG) Urine Blood Negative (NEG) Urine Nitrite Negative (NEG) Urine Bilirubin Negative (NEG) Urine Urobilinogen Dipstick 1.0 mg/dL (0.2 mg/dL) Urine Leukocyte Esterase Negative (NEG) Urine RBC 0 /HPF (0-2) Urine WBC Rare /HPF (0-4) Urine Bacteria 0 /HPF (0-FEW) White Blood Count 5.1 x10^3/uL (4.0-11.0) 4.6 x10^3/uL (4.0-11.0) Red Blood Count 5.01 x10^6/uL (4.30-5.70) 4.74 x10^6/uL (4.30-5.70) Hemoglobin 15.4 g/dL (13.0-17.5) 14.7 g/dL (13.0-17.5) Hematocrit 46.5 % (39.0-53.0) 43.7 % (39.0-53.0) Mean Corpuscular Volume 93 fL (79-100) 92 fL (79-100) Mean Corpuscular Hemoglobin 31 pg (25-35) 31 pg (25-35) Mean Corpuscular Hemoglobin Concent 33 g/dL (31-37) 34 g/dL (31-37) Red Cell Distribution Width 13.5 % (11.5-14.5) 13.5 % (11.5-14.5) Platelet Count 132 x10^3/uL (140-400) 142 x10^3/uL (140-400) Neutrophils (%) (Auto) 67 % (31-73) 54 % (31-73) Lymphocytes (%) (Auto) 16 % (24-48) 27 % (24-48) Monocytes (%) (Auto) 13 % (0-9) 14 % (0-9) Eosinophils (%) (Auto) 3 % (0-3) 4 % (0-3) Basophils (%) (Auto) 1 % (0-3) 1 % (0-3) Neutrophils # (Auto) 3.4 x10^3uL (1.8-7.7) 2.5 x10^3uL (1.8-7.7) Lymphocytes # (Auto) 0.8 x10^3/uL (1.0-4.8) 1.3 x10^3/uL (1.0-4.8) Monocytes # (Auto) 0.7 x10^3/uL (0.0-1.1) 0.7 x10^3/uL (0.0-1.1) Eosinophils # (Auto) 0.2 x10^3/uL (0.0-0.7) 0.2 x10^3/uL (0.0-0.7) Basophils # (Auto) 0.0 x10^3/uL (0.0-0.2) 0.0 x10^3/uL (0.0-0.2) Prothrombin Time 13.8 SEC (11.7-14.0) Prothromb Time International Ratio 1.1 (0.8-1.1) Sodium Level 139 mmol/L (136-145) 138 mmol/L (136-145) Potassium Level 4.0 mmol/L (3.5-5.1) 3.8 mmol/L (3.5-5.1) Chloride Level 102 mmol/L (98-107) 103 mmol/L (98-107) Carbon Dioxide Level 26 mmol/L (21-32) 24 mmol/L (21-32) Anion Gap 11 (6-14) 11 (6-14) Blood Urea Nitrogen 19 mg/dL (8-26) 17 mg/dL (8-26) Creatinine 1.0 mg/dL (0.7-1.3) 1.0 mg/dL (0.7-1.3) Estimated GFR (Cockcroft-Gault) 70.4 70.4 BUN/Creatinine Ratio 19 (6-20) 17 (6-20) Glucose Level 89 mg/dL (70-99) 98 mg/dL (70-99) Calcium Level 9.2 mg/dL (8.5-10.1) 9.1 mg/dL (8.5-10.1) Magnesium Level 2.1 mg/dL (1.8-2.4) 2.1 mg/dL (1.8-2.4) Total Bilirubin 0.9 mg/dL (0.2-1.0) 0.6 mg/dL (0.2-1.0) Aspartate Amino Transf (AST/SGOT) 35 U/L (15-37) 23 U/L (15-37) Alanine Aminotransferase (ALT/SGPT) 21 U/L (16-63) 18 U/L (16-63) Alkaline Phosphatase 70 U/L (46-116) 73 U/L (46-116) Troponin I Quantitative 0.020 ng/mL (0.000-0.055) ZP-Ecy-G-Type Natriuretic Peptide 4136 pg/mL (0-449) Total Protein 6.3 g/dL (6.4-8.2) 6.2 g/dL (6.4-8.2) Albumin 3.4 g/dL (3.4-5.0) 3.2 g/dL (3.4-5.0) Albumin/Globulin Ratio 1.2 (1.0-1.7) 1.1 (1.0-1.7) Lipase 203 U/L (73-393) Laboratory Tests Test 11/10/18 02:35 White Blood Count 4.6 x10^3/uL (4.0-11.0) Red Blood Count 4.74 x10^6/uL (4.30-5.70) Hemoglobin 14.7 g/dL (13.0-17.5) Hematocrit 43.7 % (39.0-53.0) Mean Corpuscular Volume 92 fL (79-100) Mean Corpuscular Hemoglobin 31 pg (25-35) Mean Corpuscular Hemoglobin Concent 34 g/dL (31-37) Red Cell Distribution Width 13.5 % (11.5-14.5) Platelet Count 142 x10^3/uL (140-400) Neutrophils (%) (Auto) 54 % (31-73) Lymphocytes (%) (Auto) 27 % (24-48) Monocytes (%) (Auto) 14 % (0-9) Eosinophils (%) (Auto) 4 % (0-3) Basophils (%) (Auto) 1 % (0-3) Neutrophils # (Auto) 2.5 x10^3uL (1.8-7.7) Lymphocytes # (Auto) 1.3 x10^3/uL (1.0-4.8) Monocytes # (Auto) 0.7 x10^3/uL (0.0-1.1) Eosinophils # (Auto) 0.2 x10^3/uL (0.0-0.7) Basophils # (Auto) 0.0 x10^3/uL (0.0-0.2) Sodium Level 138 mmol/L (136-145) Potassium Level 3.8 mmol/L (3.5-5.1) Chloride Level 103 mmol/L (98-107) Carbon Dioxide Level 24 mmol/L (21-32) Anion Gap 11 (6-14) Blood Urea Nitrogen 17 mg/dL (8-26) Creatinine 1.0 mg/dL (0.7-1.3) Estimated GFR (Cockcroft-Gault) 70.4 BUN/Creatinine Ratio 17 (6-20) Glucose Level 98 mg/dL (70-99) Calcium Level 9.1 mg/dL (8.5-10.1) Magnesium Level 2.1 mg/dL (1.8-2.4) Total Bilirubin 0.6 mg/dL (0.2-1.0) Aspartate Amino Transf (AST/SGOT) 23 U/L (15-37) Alanine Aminotransferase (ALT/SGPT) 18 U/L (16-63) Alkaline Phosphatase 73 U/L (46-116) Total Protein 6.2 g/dL (6.4-8.2) Albumin 3.2 g/dL (3.4-5.0) Albumin/Globulin Ratio 1.1 (1.0-1.7) Medications Current Medications Sodium Chloride 500 ml @ 500 mls/hr 1X ONCE IV Last administered on 11/08/18at 18:36; Start 11/08/18 at 18:30; Stop 11/08/18 at 19:29; Status DC Quetiapine Fumarate (SEROquel) 25 mg 1X STAT PO ; Start 11/08/18 at 20:42; Stop 11/08/18 at 20:47; Status DC Sodium Chloride 500 ml @ 500 mls/hr 1X ONCE IV Last administered on 11/08/18at 22:02; Start 11/08/18 at 21:00; Stop 11/08/18 at 21:59; Status DC Aspirin (Children'S Aspirin) 324 mg 1X ONCE PO Last administered on 11/08/18at 22:00; Start 11/08/18 at 21:30; Stop 11/08/18 at 21:31; Status DC Acetaminophen (Tylenol) 500 mg PRN BID PRN PO PAIN; Start 11/09/18 at 00:00 Sodium Chloride 1,000 ml @ 100 mls/hr Q10H IV ; Start 11/09/18 at 11:00 Active Scripts Active Tylenol Extra Strength (Acetaminophen) 500 Mg Tablet 500 Mg PO BID PRN Vitals/I & O Vital Sign - Last 24 Hours 11/09/18 11/09/18 11/09/18 11/09/18 11:00 15:00 18:55 23:00 Temp 97.9 98.3 97.8 97.8 97.9 98.3 97.8 97.8 Pulse 88 63 82 86 Resp 16 14 18 18 B/P (MAP) 100/57 (71) 101/52 (68) 107/59 (75) 119/71 (87) Pulse Ox 97 98 96 99 O2 Delivery Room Air Room Air Room Air Room Air 11/10/18 11/10/18 03:00 07:00 Temp 98.2 98.2 Pulse 80 77 Resp 16 14 B/P (MAP) 124/74 (91) 125/79 (94) Pulse Ox 99 98 O2 Delivery Room Air Room Air Intake and Output 11/09/18 11/09/18 11/10/18 15:00 23:00 07:00 Intake Total 375 ml 240 ml 300 ml Balance 375 ml 240 ml 300 ml CALEB MORILLO MD Nov 10, 2018 09:04
--- NOTE | 2018-11-10 10:23 | PDOC ---
IM PROGRESS NOTES- Subjective Subjective Patient is very confused. He declined IV fluids yesterday. Unable to do full systems review. I discussed with the patient's and she stated that the patient fell in the backyard on Wednesday and the part of his body including his right shoulder and arm and extremity in the upper body was on the concrete and the rest of the body was on the grass. Since then he has been weaker. He slides out of the chair in the living room and then she has called her neighbors to pull it back up. Objective Vitals Vital Signs Date Time Temp Pulse Resp B/P (MAP) Pulse Ox O2 Delivery O2 Flow Rate FiO2 11/10/18 07:00 98.2 77 14 125/79 (94) 98 Room Air 98.2 Input & Output Intake and Output 11/10/18 07:00 Intake Total 915 ml Balance 915 ml Intake Oral 915 ml # Voids 1 Physical Exam Physical Exam General appearance - alert, chronically ill appearing, and in no distress Head - normal Chest -decreased breath sounds at bases Heart - S1 and S2 normal Abdomen - soft, nontender, nondistended Neurological - alert and confused Musculoskeletal - no muscular tenderness noted Extremities - no pedal edema Skin - warm and dry Labs Laboratory Tests Test 11/08/18 17:29 11/08/18 17:50 11/10/18 02:35 Urine Collection Type Void Urine Color Yellow Urine Clarity Clear Urine pH 7.5 Urine Specific [place] 1.010 Urine Protein Negative mg/dL (NEG-TRACE) Urine Glucose (UA) Negative mg/dL (NEG) Urine Ketones (Stick) Negative mg/dL (NEG) Urine Blood Negative (NEG) Urine Nitrite Negative (NEG) Urine Bilirubin Negative (NEG) Urine Urobilinogen Dipstick 1.0 mg/dL (0.2 mg/dL) Urine Leukocyte Esterase Negative (NEG) Urine RBC 0 /HPF (0-2) Urine WBC Rare /HPF (0-4) Urine Bacteria 0 /HPF (0-FEW) White Blood Count 5.1 x10^3/uL (4.0-11.0) 4.6 x10^3/uL (4.0-11.0) Red Blood Count 5.01 x10^6/uL (4.30-5.70) 4.74 x10^6/uL (4.30-5.70) Hemoglobin 15.4 g/dL (13.0-17.5) 14.7 g/dL (13.0-17.5) Hematocrit 46.5 % (39.0-53.0) 43.7 % (39.0-53.0) Mean Corpuscular Volume 93 fL (79-100) 92 fL (79-100) Mean Corpuscular Hemoglobin 31 pg (25-35) 31 pg (25-35) Mean Corpuscular Hemoglobin Concent 33 g/dL (31-37) 34 g/dL (31-37) Red Cell Distribution Width 13.5 % (11.5-14.5) 13.5 % (11.5-14.5) Platelet Count 132 x10^3/uL (140-400) 142 x10^3/uL (140-400) Neutrophils (%) (Auto) 67 % (31-73) 54 % (31-73) Lymphocytes (%) (Auto) 16 % (24-48) 27 % (24-48) Monocytes (%) (Auto) 13 % (0-9) 14 % (0-9) Eosinophils (%) (Auto) 3 % (0-3) 4 % (0-3) Basophils (%) (Auto) 1 % (0-3) 1 % (0-3) Neutrophils # (Auto) 3.4 x10^3uL (1.8-7.7) 2.5 x10^3uL (1.8-7.7) Lymphocytes # (Auto) 0.8 x10^3/uL (1.0-4.8) 1.3 x10^3/uL (1.0-4.8) Monocytes # (Auto) 0.7 x10^3/uL (0.0-1.1) 0.7 x10^3/uL (0.0-1.1) Eosinophils # (Auto) 0.2 x10^3/uL (0.0-0.7) 0.2 x10^3/uL (0.0-0.7) Basophils # (Auto) 0.0 x10^3/uL (0.0-0.2) 0.0 x10^3/uL (0.0-0.2) Prothrombin Time 13.8 SEC (11.7-14.0) Prothromb Time International Ratio 1.1 (0.8-1.1) Sodium Level 139 mmol/L (136-145) 138 mmol/L (136-145) Potassium Level 4.0 mmol/L (3.5-5.1) 3.8 mmol/L (3.5-5.1) Chloride Level 102 mmol/L (98-107) 103 mmol/L (98-107) Carbon Dioxide Level 26 mmol/L (21-32) 24 mmol/L (21-32) Anion Gap 11 (6-14) 11 (6-14) Blood Urea Nitrogen 19 mg/dL (8-26) 17 mg/dL (8-26) Creatinine 1.0 mg/dL (0.7-1.3) 1.0 mg/dL (0.7-1.3) Estimated GFR (Cockcroft-Gault) 70.4 70.4 BUN/Creatinine Ratio 19 (6-20) 17 (6-20) Glucose Level 89 mg/dL (70-99) 98 mg/dL (70-99) Calcium Level 9.2 mg/dL (8.5-10.1) 9.1 mg/dL (8.5-10.1) Magnesium Level 2.1 mg/dL (1.8-2.4) 2.1 mg/dL (1.8-2.4) Total Bilirubin 0.9 mg/dL (0.2-1.0) 0.6 mg/dL (0.2-1.0) Aspartate Amino Transf (AST/SGOT) 35 U/L (15-37) 23 U/L (15-37) Alanine Aminotransferase (ALT/SGPT) 21 U/L (16-63) 18 U/L (16-63) Alkaline Phosphatase 70 U/L (46-116) 73 U/L (46-116) Troponin I Quantitative 0.020 ng/mL (0.000-0.055) RJ-Zed-J-Type Natriuretic Peptide 4136 pg/mL (0-449) Total Protein 6.3 g/dL (6.4-8.2) 6.2 g/dL (6.4-8.2) Albumin 3.4 g/dL (3.4-5.0) 3.2 g/dL (3.4-5.0) Albumin/Globulin Ratio 1.2 (1.0-1.7) 1.1 (1.0-1.7) Lipase 203 U/L (73-393) Laboratory Tests Test 11/10/18 02:35 White Blood Count 4.6 x10^3/uL (4.0-11.0) Red Blood Count 4.74 x10^6/uL (4.30-5.70) Hemoglobin 14.7 g/dL (13.0-17.5) Hematocrit 43.7 % (39.0-53.0) Mean Corpuscular Volume 92 fL (79-100) Mean Corpuscular Hemoglobin 31 pg (25-35) Mean Corpuscular Hemoglobin Concent 34 g/dL (31-37) Red Cell Distribution Width 13.5 % (11.5-14.5) Platelet Count 142 x10^3/uL (140-400) Neutrophils (%) (Auto) 54 % (31-73) Lymphocytes (%) (Auto) 27 % (24-48) Monocytes (%) (Auto) 14 % (0-9) Eosinophils (%) (Auto) 4 % (0-3) Basophils (%) (Auto) 1 % (0-3) Neutrophils # (Auto) 2.5 x10^3uL (1.8-7.7) Lymphocytes # (Auto) 1.3 x10^3/uL (1.0-4.8) Monocytes # (Auto) 0.7 x10^3/uL (0.0-1.1) Eosinophils # (Auto) 0.2 x10^3/uL (0.0-0.7) Basophils # (Auto) 0.0 x10^3/uL (0.0-0.2) Sodium Level 138 mmol/L (136-145) Potassium Level 3.8 mmol/L (3.5-5.1) Chloride Level 103 mmol/L (98-107) Carbon Dioxide Level 24 mmol/L (21-32) Anion Gap 11 (6-14) Blood Urea Nitrogen 17 mg/dL (8-26) Creatinine 1.0 mg/dL (0.7-1.3) Estimated GFR (Cockcroft-Gault) 70.4 BUN/Creatinine Ratio 17 (6-20) Glucose Level 98 mg/dL (70-99) Calcium Level 9.1 mg/dL (8.5-10.1) Magnesium Level 2.1 mg/dL (1.8-2.4) Total Bilirubin 0.6 mg/dL (0.2-1.0) Aspartate Amino Transf (AST/SGOT) 23 U/L (15-37) Alanine Aminotransferase (ALT/SGPT) 18 U/L (16-63) Alkaline Phosphatase 73 U/L (46-116) Total Protein 6.2 g/dL (6.4-8.2) Albumin 3.2 g/dL (3.4-5.0) Albumin/Globulin Ratio 1.1 (1.0-1.7) Meds Current Medications Sodium Chloride 1,000 ml @ 100 mls/hr Q10H IV ; Start 11/09/18 at 11:00 Assessment Assessment 1. Change in mental status. 2. Acute renal failure. 3. Dementia with behavioral disturbances. 4. Fall. 5. Physical deconditioning. 6. Pernicious anemia. 7. Gastroesophageal reflux disease with esophagitis. 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 9. History of intracranial hemorrhage. 10. Weight loss. 11. Diabetes mellitus without complication. 12. History of hyperlipidemia. 13. History of diverticulosis. 14. History of severe protein-calorie malnutrition, currently albumin is 3.4. PLAN: I will restart IV fluids. Consult Dr. Montiel for rehab evaluation and management. Start PT, OT. Monitor him closely. Depending on his status, he may need to go to a alf unit or a [facility] Unit. Prognosis of this patient is extremely poor. Acute metabolic encephalopathy- improving. Dementia. Frequent falls Acute renal failure. Increased patient to eat more. Drink more fluids. Patient declined the IV fluids yesterday. I advised the patient and the staff to restart IV fluids. Creatinine is still 1. Weakness- discussed with Dr. Montiel. Patient has difficulty getting up and he requires help he did walk some with his walker. Condition and treatment discussed with the patient's . She is agreeable for him to go to alf unit. continue physical therapy and occupational therapy. [facility] Plan Plan For more details regarding further plans, please refer to the orders. CATHY MALONEY MD Nov 10, 2018 10:23
[2018-11-10 10:51] VITALS: BP 144/69
--- NOTE | 2018-11-10 11:21 | NUR ---
SW following pt. [facility] declined to take pt due to behaviors but SW requested them to reconsider and faxed RN behavioral notes. [facility] will come in to see pt. Spoke with via phone and discussed will need to look into more SNU options at this time. agreeable with SW sending referral to [facility] and [facility]. stated pt was never physically and verbally abusive at home. SW phoned and faxed referral to mentioned facilities. Pt acceptance and admission pending. Will continue to follow.
--- NOTE | 2018-11-10 11:41 | CONS ---
DATE OF CONSULTATION: 11/09/2018 LOCATION: Room 512. ATTENDING PHYSICIAN: Dr. Kayley Carlson. The patient was seen at the request of Dr. Carlson for rehab evaluation. HISTORY OF PRESENT ILLNESS: The patient is an 88-year-old right-handed male, known to me. The patient with known dementia, some behavior disturbances, admitted with frequent falls and some loss of weight. The patient had radiological studies, which failed to reveal any acute abnormalities. He denies any pain. The patient refuses to use a walker at home. The patient lives with his , had no stairs for him to manage. The patient also with known hyperlipidemia, thrombocytopenia, pernicious anemia, gastroesophageal reflux disease, esophagitis, benign hypertension, chronic kidney disease stage 2, intracranial hemorrhage following injury and loss of consciousness, diabetes mellitus without complication, diverticulosis, pneumonia, status post cholecystectomy. ALLERGIES: KNOWN ALLERGIC TO PENICILLIN. SOCIAL HISTORY: The patient used to drink in the past. He had history of smoking. FAMILY HISTORY: Alcoholism. Father had hypertension. Mother had hypertension and pneumonia. PHYSICAL EXAMINATION: Today revealed an elderly male. He is alert, oriented to place and person, follows commands appropriately, moves all 4 extremities voluntarily where he had 4+/5 grade muscle strength. Deep tendon reflexes are decreased overall with absent knee and ankle jerks, and he had some limitation of external rotation at both hip joints. He requires little bit of time and a couple of pushups to come to a standing portion from sitting in the low chair, but once up, he can walk using a roller walker with somewhat wide-based gait. I did not see any loss of balance. ASSESSMENT: 1. An elderly male with known chronic ethanol abuse and diabetes mellitus, who has clinical evidence of peripheral neuropathy and frequent falls. 2. History of dementia and behavioral disturbances. 3. Degenerative changes at both hips and knees without any significant pain. RECOMMENDATIONS: Agree with the plan for physical therapy and occupational therapy at home with home health followup when medically stable. He may benefit from a lift chair as he is having some difficulty to get up from low chair. Dr. Carlson, I appreciate asking me to participate in the care of this interesting patient. I will be glad to follow him with you as needed for rehabilitation. CLAEB MORILLO MD DR: MALICK/fang JOB#: [id number] / [id number]
[2018-11-10 15:04] VITALS: BP 122/83
[2018-11-10 19:00] VITALS: BP 130/70
[2018-11-10 23:00] VITALS: BP 101/53
[2018-11-11] MEDS: IV NORMAL SALINE 1000ML BAG 1,000 ML IV SCH ×3 (00:08→19:51)
[2018-11-11 03:00] VITALS: BP 124/80
[2018-11-11 07:00] VITALS: BP 115/59
--- NOTE | 2018-11-11 09:06 | NUR ---
SW following pt. [facility] and [facility] declined to take pt stating they can not meet his needs. Pt's declined [facility]. Pt also appeared to do better with PT yesterday walking 250ft with a walker, and minimum assistance. Discussed with since SW is not able to find accepting facility and with Pt's participation with PT likely insurance will decline SNU request. SW discussed Pt is more appropriate to get PT/OT at home with home health as she currently is not looking into LTC placment. agreeable to take pt home tomorrow with home health and reported she will move furniture home today so Pt is able to use walker at home. Pt's also confirmed Pt has a walker at home. Pt was on service with [facility] and resumptions orders can be faxed tomorrow. Discussed with RN.
--- NOTE | 2018-11-11 09:22 | PDOC ---
PROGRESS NOTES Subjective Subjective He feels better. Objective Objective Vital Signs Date Time Temp Pulse Resp B/P (MAP) Pulse Ox O2 Delivery O2 Flow Rate FiO2 11/11/18 08:00 Room Air 11/11/18 07:00 98.1 72 17 115/59 (77) 90 98.1 Intake and Output 11/11/18 07:00 Intake Total 0 ml Balance 0 ml Intake Oral 0 ml # Voids 1 Physical Exam Physical Exam He is awake,supine in bed and breakfast at bedside.He did walk for 250' with roller walker with physical therapy. I have noted him sometimes he has to push 2-3 times to get up from a low chair and he may benefit fro a lif chair. Assessment Assessment Problems Medical Problems: (1) Weakness Status: Acute Plan Plan of Care Agree with plans for home with home health and later out patient follow up. Comment Review of Relevant I have reviewed the following items dar (where applicable) has been applied. Labs Laboratory Tests Test 11/10/18 02:35 White Blood Count 4.6 x10^3/uL (4.0-11.0) Red Blood Count 4.74 x10^6/uL (4.30-5.70) Hemoglobin 14.7 g/dL (13.0-17.5) Hematocrit 43.7 % (39.0-53.0) Mean Corpuscular Volume 92 fL (79-100) Mean Corpuscular Hemoglobin 31 pg (25-35) Mean Corpuscular Hemoglobin Concent 34 g/dL (31-37) Red Cell Distribution Width 13.5 % (11.5-14.5) Platelet Count 142 x10^3/uL (140-400) Neutrophils (%) (Auto) 54 % (31-73) Lymphocytes (%) (Auto) 27 % (24-48) Monocytes (%) (Auto) 14 % (0-9) Eosinophils (%) (Auto) 4 % (0-3) Basophils (%) (Auto) 1 % (0-3) Neutrophils # (Auto) 2.5 x10^3uL (1.8-7.7) Lymphocytes # (Auto) 1.3 x10^3/uL (1.0-4.8) Monocytes # (Auto) 0.7 x10^3/uL (0.0-1.1) Eosinophils # (Auto) 0.2 x10^3/uL (0.0-0.7) Basophils # (Auto) 0.0 x10^3/uL (0.0-0.2) Sodium Level 138 mmol/L (136-145) Potassium Level 3.8 mmol/L (3.5-5.1) Chloride Level 103 mmol/L (98-107) Carbon Dioxide Level 24 mmol/L (21-32) Anion Gap 11 (6-14) Blood Urea Nitrogen 17 mg/dL (8-26) Creatinine 1.0 mg/dL (0.7-1.3) Estimated GFR (Cockcroft-Gault) 70.4 BUN/Creatinine Ratio 17 (6-20) Glucose Level 98 mg/dL (70-99) Calcium Level 9.1 mg/dL (8.5-10.1) Magnesium Level 2.1 mg/dL (1.8-2.4) Total Bilirubin 0.6 mg/dL (0.2-1.0) Aspartate Amino Transf (AST/SGOT) 23 U/L (15-37) Alanine Aminotransferase (ALT/SGPT) 18 U/L (16-63) Alkaline Phosphatase 73 U/L (46-116) Total Protein 6.2 g/dL (6.4-8.2) Albumin 3.2 g/dL (3.4-5.0) Albumin/Globulin Ratio 1.1 (1.0-1.7) Medications Current Medications Sodium Chloride 500 ml @ 500 mls/hr 1X ONCE IV Last administered on 11/08/18at 18:36; Start 11/08/18 at 18:30; Stop 11/08/18 at 19:29; Status DC Quetiapine Fumarate (SEROquel) 25 mg 1X STAT PO ; Start 11/08/18 at 20:42; Stop 11/08/18 at 20:47; Status DC Sodium Chloride 500 ml @ 500 mls/hr 1X ONCE IV Last administered on 11/08/18at 22:02; Start 11/08/18 at 21:00; Stop 11/08/18 at 21:59; Status DC Aspirin (Children'S Aspirin) 324 mg 1X ONCE PO Last administered on 11/08/18at 22:00; Start 11/08/18 at 21:30; Stop 11/08/18 at 21:31; Status DC Acetaminophen (Tylenol) 500 mg PRN BID PRN PO PAIN; Start 11/09/18 at 00:00 Sodium Chloride 1,000 ml @ 100 mls/hr Q10H IV ; Start 11/09/18 at 11:00 Active Scripts Active Tylenol Extra Strength (Acetaminophen) 500 Mg Tablet 500 Mg PO BID PRN Vitals/I & O Vital Sign - Last 24 Hours 11/10/18 11/10/18 11/10/18 11/10/18 10:51 15:04 19:00 23:00 Temp 98.2 98.7 98.5 98.7 98.2 98.7 98.5 98.7 Pulse 74 85 75 78 Resp 16 18 18 18 B/P (MAP) 144/69 (94) 122/83 (96) 130/70 (90) 101/53 (69) Pulse Ox 100 97 98 98 O2 Delivery Room Air Room Air Room Air Room Air 11/11/18 11/11/18 11/11/18 03:00 07:00 08:00 Temp 98.4 98.1 98.4 98.1 Pulse 82 72 Resp 18 17 B/P (MAP) 124/80 (95) 115/59 (77) Pulse Ox 99 90 O2 Delivery Room Air Room Air Room Air Intake and Output 11/10/18 11/10/18 11/11/18 15:00 23:00 07:00 Intake Total 0 ml Balance 0 ml CALEB MORILLO MD Nov 11, 2018 09:22
--- NOTE | 2018-11-11 09:27 | SNU/HH DC ---
DISCHARGE WITH HOME HEALTH DISCHARGE INFORMATION: Final Diagnosis: Problems Medical Problems: (1) Weakness Status: Acute Condition on Discharge: Stable HOME HEALTH: Face to Face: I certify this patient is under my care and that I, or a nurse practitioner or physician's assistant property manager working with me, had a face to face encounter that meets the physician face to face encounter requirements with this patient on 11/11/18. Medical Complications: Dementia RN For Eval/Treatment: Yes Physical Therapy For: Evalulation/Treatment Occupational Therapy For: Evaluation/Treatment Pt Meets Homebound Status: Unsteady balance w/ amb, POST DISCHARGE ORDERS: Activity Instructions for Disc: Activity as tolerated (with walker), Other, see below DIET AFTER DISCHARGE: Regular FOLLOW-UP: PCP to follow Home Health: Yes Follow up with: Dr.Pratip Maloney in 5 days CERTIFICATION STATEMENT: Certification Statement: Certification Statement: Based on the above finding, I certify that this patient is confined to the home and needs intermittent [facility] care, physical therapy and/or speech therapy, or continues to need occupational therapy.~ This patient is under my care, and I have initiated the establishment of the plan of care.~ This patient will be followed by myself or a community physician who will periodically review the plan of care. Home Meds Active Scripts Acetaminophen (TYLENOL EXTRA STRENGTH) 500 Mg Tablet, 500 MG PO BID PRN for PAIN, #120 Prov:OLIVA SIMMONS APRN 01/18/14 CATHY MALONEY MD Nov 11, 2018 09:27
--- NOTE | 2018-11-11 09:57 | PDOC ---
IM PROGRESS NOTES- Subjective Subjective Patient is very confused. He declined IV fluids.. Unable to do full systems review. He is eating better. Objective Vitals Vital Signs Date Time Temp Pulse Resp B/P (MAP) Pulse Ox O2 Delivery O2 Flow Rate FiO2 11/11/18 08:00 Room Air 11/11/18 07:00 98.1 72 17 115/59 (77) 90 98.1 Input & Output Intake and Output 11/11/18 07:00 Intake Total 0 ml Balance 0 ml Intake Oral 0 ml # Voids 1 Physical Exam Physical Exam General appearance - alert, chronically ill appearing, and in no distress Head - normal Chest -decreased breath sounds at bases Heart - S1 and S2 normal Abdomen - soft, nontender, nondistended Neurological - alert and confused Musculoskeletal - no muscular tenderness noted Extremities - no pedal edema Skin - warm and dry Labs Laboratory Tests Test 11/10/18 02:35 White Blood Count 4.6 x10^3/uL (4.0-11.0) Red Blood Count 4.74 x10^6/uL (4.30-5.70) Hemoglobin 14.7 g/dL (13.0-17.5) Hematocrit 43.7 % (39.0-53.0) Mean Corpuscular Volume 92 fL (79-100) Mean Corpuscular Hemoglobin 31 pg (25-35) Mean Corpuscular Hemoglobin Concent 34 g/dL (31-37) Red Cell Distribution Width 13.5 % (11.5-14.5) Platelet Count 142 x10^3/uL (140-400) Neutrophils (%) (Auto) 54 % (31-73) Lymphocytes (%) (Auto) 27 % (24-48) Monocytes (%) (Auto) 14 % (0-9) Eosinophils (%) (Auto) 4 % (0-3) Basophils (%) (Auto) 1 % (0-3) Neutrophils # (Auto) 2.5 x10^3uL (1.8-7.7) Lymphocytes # (Auto) 1.3 x10^3/uL (1.0-4.8) Monocytes # (Auto) 0.7 x10^3/uL (0.0-1.1) Eosinophils # (Auto) 0.2 x10^3/uL (0.0-0.7) Basophils # (Auto) 0.0 x10^3/uL (0.0-0.2) Sodium Level 138 mmol/L (136-145) Potassium Level 3.8 mmol/L (3.5-5.1) Chloride Level 103 mmol/L (98-107) Carbon Dioxide Level 24 mmol/L (21-32) Anion Gap 11 (6-14) Blood Urea Nitrogen 17 mg/dL (8-26) Creatinine 1.0 mg/dL (0.7-1.3) Estimated GFR (Cockcroft-Gault) 70.4 BUN/Creatinine Ratio 17 (6-20) Glucose Level 98 mg/dL (70-99) Calcium Level 9.1 mg/dL (8.5-10.1) Magnesium Level 2.1 mg/dL (1.8-2.4) Total Bilirubin 0.6 mg/dL (0.2-1.0) Aspartate Amino Transf (AST/SGOT) 23 U/L (15-37) Alanine Aminotransferase (ALT/SGPT) 18 U/L (16-63) Alkaline Phosphatase 73 U/L (46-116) Total Protein 6.2 g/dL (6.4-8.2) Albumin 3.2 g/dL (3.4-5.0) Albumin/Globulin Ratio 1.1 (1.0-1.7) Assessment Assessment 1. Change in mental status. 2. Acute renal failure. 3. Dementia with behavioral disturbances. 4. Fall. 5. Physical deconditioning. 6. Pernicious anemia. 7. Gastroesophageal reflux disease with esophagitis. 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 9. History of intracranial hemorrhage. 10. Weight loss. 11. Diabetes mellitus without complication. 12. History of hyperlipidemia. 13. History of diverticulosis. 14. History of severe protein-calorie malnutrition, currently albumin is 3.4. PLAN: I will restart IV fluids. Consult Dr. Montiel for rehab evaluation and management. Start PT, OT. Monitor him closely. Depending on his status, he may need to go to a senior care unit or a [facility]. Prognosis of this patient is extremely poor. Acute metabolic encephalopathy- improving. Dementia. Frequent falls Acute renal failure. Increased patient to eat more. Drink more fluids. Patient declined the IV fluids yesterday. I advised the patient and the staff to restart IV fluids. Creatinine is still 1. Weakness- slowly improving. None of the senior care units has accepted the patient. The cannot take the patient home today as she is arranging the furniture in the house. She'll take him home tomorrow with home health services. Prognosis of this patient remains very poor. Yesterday I had also talked to her about considering hospice for him. Plan Plan For more details regarding further plans, please refer to the orders. CATHY MALONEY MD Nov 11, 2018 09:57
[2018-11-11 10:58] LABS: ALBUMIN 3.1 g/dL (3.4-5.0); CALCIUM 8.8 mg/dL (8.5-10.1); GFR 70.4; POTASSIUM 4.2 mmol/L (3.5-5.1); TOTAL BILIRUBIN 0.6 mg/dL (0.2-1.0); TOTAL PROTEIN 6.1 g/dL (6.4-8.2)
[2018-11-11 11:00] VITALS: BP 122/74
[2018-11-11 15:00] VITALS: BP 105/65
[2018-11-11 19:00] VITALS: BP 111/69
[2018-11-11 23:00] VITALS: BP 112/64
[2018-11-12 03:00] VITALS: BP 113/62
[2018-11-12 05:06] LABS: ALBUMIN 2.9 g/dL (3.4-5.0); CALCIUM 8.6 mg/dL (8.5-10.1); GFR 70.4; POTASSIUM 3.9 mmol/L (3.5-5.1); TOTAL BILIRUBIN 0.6 mg/dL (0.2-1.0); TOTAL PROTEIN 5.7 g/dL (6.4-8.2)
[2018-11-12] MEDS: IV NORMAL SALINE 1000ML BAG 1,000 ML IV SCH (06:58)
[2018-11-12 07:00] VITALS: BP 111/73
--- NOTE | 2018-11-12 09:53 | PDOC ---
PROGRESS NOTES Subjective Subjective No new complaints except eager to go home. Objective Objective Vital Signs Date Time Temp Pulse Resp B/P (MAP) Pulse Ox O2 Delivery O2 Flow Rate FiO2 11/12/18 08:00 Room Air 11/12/18 07:00 98.6 75 18 111/73 (86) 97 98.6 Intake and Output 11/12/18 07:00 Intake Total 560 ml Balance 560 ml Intake Oral 560 ml # Voids 3 Physical Exam Physical Exam He got up and walked with roller walker without any difficulty.He is more co- operative this AM. Assessment Assessment Problems Medical Problems: (1) Weakness Status: Acute Plan Plan of Care Agree with plans for home with home health follow up. Comment Review of Relevant I have reviewed the following items dar (where applicable) has been applied. Labs Laboratory Tests Test 11/11/18 08:30 11/12/18 03:30 Sodium Level 139 mmol/L (136-145) 140 mmol/L (136-145) Potassium Level 4.2 mmol/L (3.5-5.1) 3.9 mmol/L (3.5-5.1) Chloride Level 106 mmol/L (98-107) 105 mmol/L (98-107) Carbon Dioxide Level 26 mmol/L (21-32) 26 mmol/L (21-32) Anion Gap 7 (6-14) 9 (6-14) Blood Urea Nitrogen 14 mg/dL (8-26) 14 mg/dL (8-26) Creatinine 1.0 mg/dL (0.7-1.3) 1.0 mg/dL (0.7-1.3) Estimated GFR (Cockcroft-Gault) 70.4 70.4 BUN/Creatinine Ratio 14 (6-20) 14 (6-20) Glucose Level 97 mg/dL (70-99) 86 mg/dL (70-99) Calcium Level 8.8 mg/dL (8.5-10.1) 8.6 mg/dL (8.5-10.1) Total Bilirubin 0.6 mg/dL (0.2-1.0) 0.6 mg/dL (0.2-1.0) Aspartate Amino Transf (AST/SGOT) 20 U/L (15-37) 17 U/L (15-37) Alanine Aminotransferase (ALT/SGPT) 16 U/L (16-63) 14 U/L (16-63) Alkaline Phosphatase 64 U/L (46-116) 65 U/L (46-116) Total Protein 6.1 g/dL (6.4-8.2) 5.7 g/dL (6.4-8.2) Albumin 3.1 g/dL (3.4-5.0) 2.9 g/dL (3.4-5.0) Albumin/Globulin Ratio 1.0 (1.0-1.7) 1.0 (1.0-1.7) Laboratory Tests Test 11/12/18 03:30 Sodium Level 140 mmol/L (136-145) Potassium Level 3.9 mmol/L (3.5-5.1) Chloride Level 105 mmol/L (98-107) Carbon Dioxide Level 26 mmol/L (21-32) Anion Gap 9 (6-14) Blood Urea Nitrogen 14 mg/dL (8-26) Creatinine 1.0 mg/dL (0.7-1.3) Estimated GFR (Cockcroft-Gault) 70.4 BUN/Creatinine Ratio 14 (6-20) Glucose Level 86 mg/dL (70-99) Calcium Level 8.6 mg/dL (8.5-10.1) Total Bilirubin 0.6 mg/dL (0.2-1.0) Aspartate Amino Transf (AST/SGOT) 17 U/L (15-37) Alanine Aminotransferase (ALT/SGPT) 14 U/L (16-63) Alkaline Phosphatase 65 U/L (46-116) Total Protein 5.7 g/dL (6.4-8.2) Albumin 2.9 g/dL (3.4-5.0) Albumin/Globulin Ratio 1.0 (1.0-1.7) Medications Current Medications Sodium Chloride 500 ml @ 500 mls/hr 1X ONCE IV Last administered on 11/08/18at 18:36; Start 11/08/18 at 18:30; Stop 11/08/18 at 19:29; Status DC Quetiapine Fumarate (SEROquel) 25 mg 1X STAT PO ; Start 11/08/18 at 20:42; Stop 11/08/18 at 20:47; Status DC Sodium Chloride 500 ml @ 500 mls/hr 1X ONCE IV Last administered on 11/08/18at 22:02; Start 11/08/18 at 21:00; Stop 11/08/18 at 21:59; Status DC Aspirin (Children'S Aspirin) 324 mg 1X ONCE PO Last administered on 11/08/18at 22:00; Start 11/08/18 at 21:30; Stop 11/08/18 at 21:31; Status DC Acetaminophen (Tylenol) 500 mg PRN BID PRN PO PAIN; Start 11/09/18 at 00:00 Sodium Chloride 1,000 ml @ 100 mls/hr Q10H IV ; Start 11/09/18 at 11:00 Active Scripts Active Tylenol Extra Strength (Acetaminophen) 500 Mg Tablet 500 Mg PO BID PRN Vitals/I & O Vital Sign - Last 24 Hours 11/11/18 11/11/18 11/11/18 11/11/18 11:00 15:00 19:00 19:24 Temp 98.3 98.2 98.3 98.3 98.2 98.3 Pulse 80 82 65 Resp 17 18 18 B/P (MAP) 122/74 (90) 105/65 (78) 111/69 (83) Pulse Ox 100 97 98 O2 Delivery Room Air Room Air Room Air Room Air 11/11/18 11/12/18 11/12/18 11/12/18 23:00 03:00 07:00 08:00 Temp 98.2 98.5 98.6 98.2 98.5 98.6 Pulse 76 81 75 Resp 18 18 18 B/P (MAP) 112/64 (80) 113/62 (79) 111/73 (86) Pulse Ox 98 96 97 O2 Delivery Room Air Room Air Room Air Room Air Intake and Output 11/11/18 11/11/18 11/12/18 15:00 23:00 07:00 Intake Total 280 ml 100 ml 180 ml Balance 280 ml 100 ml 180 ml CALEB MORILLO MD Nov 12, 2018 09:53
[2018-11-12 11:00] VITALS: BP 120/68
--- NOTE | 2018-11-12 11:39 | PDOC ---
PROGRESS NOTES Subjective Subjective feels better ready to go home Objective Objective Vital Signs Date Time Temp Pulse Resp B/P (MAP) Pulse Ox O2 Delivery O2 Flow Rate FiO2 11/12/18 11:00 98.4 74 18 120/68 (85) 98 Room Air 98.4 Intake and Output 11/12/18 07:00 Intake Total 560 ml Balance 560 ml Intake Oral 560 ml # Voids 3 Physical Exam Abdomen: Normal bowel sounds, Soft Heart: Regular rate, Normal S1, Normal S2 Extremities: No clubbing General: Alert HEENT: Atraumatic MUSCULOSKELETAL: No joint tenderness, No deformity, No swelling, No muscular tenderness noted, Full range of motion without pain Neuro: Normal speech Psych/Mental Status: Mental status NL Skin: No breakdown Diagnosis Problem List Problems Medical Problems: (1) Weakness Status: Acute Assessment Assessment 1. Change in mental status resolved. 2. Acute renal failure improved. 3. Dementia with behavioral disturbances. 4. Fall. 5. Physical deconditioning. 6. Pernicious anemia. 7. Gastroesophageal reflux disease with esophagitis. 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 9. History of intracranial hemorrhage. 10. Weight loss. 11. Diabetes mellitus without complication. 12. History of hyperlipidemia. 13. History of diverticulosis. 14. History of severe protein-calorie malnutrition, currently albumin is 3.4. PLAN:d/c home today with home health. RN spoke with pts Acute metabolic encephalopathy- improving. Dementia. Plan Plan of Care Problems Medical Problems: (1) Weakness Status: Acute Comment Review of Relevant I have reviewed the following items dar (where applicable) has been applied. Labs Laboratory Tests Test 11/12/18 03:30 Sodium Level 140 mmol/L (136-145) Potassium Level 3.9 mmol/L (3.5-5.1) Chloride Level 105 mmol/L (98-107) Carbon Dioxide Level 26 mmol/L (21-32) Anion Gap 9 (6-14) Blood Urea Nitrogen 14 mg/dL (8-26) Creatinine 1.0 mg/dL (0.7-1.3) Estimated GFR (Cockcroft-Gault) 70.4 BUN/Creatinine Ratio 14 (6-20) Glucose Level 86 mg/dL (70-99) Calcium Level 8.6 mg/dL (8.5-10.1) Total Bilirubin 0.6 mg/dL (0.2-1.0) Aspartate Amino Transf (AST/SGOT) 17 U/L (15-37) Alanine Aminotransferase (ALT/SGPT) 14 U/L (16-63) Alkaline Phosphatase 65 U/L (46-116) Total Protein 5.7 g/dL (6.4-8.2) Albumin 2.9 g/dL (3.4-5.0) Albumin/Globulin Ratio 1.0 (1.0-1.7) Vitals/I & O Vital Sign - Last 24 Hours 11/11/18 11/11/18 11/11/18 11/11/18 15:00 19:00 19:24 23:00 Temp 98.2 98.3 98.2 98.2 98.3 98.2 Pulse 82 65 76 Resp 18 18 B/P (MAP) 105/65 (78) 111/69 (83) 112/64 (80) Pulse Ox 97 98 98 O2 Delivery Room Air Room Air Room Air Room Air 11/12/18 11/12/18 11/12/18 11/12/18 03:00 07:00 08:00 11:00 Temp 98.5 98.6 98.4 98.5 98.6 98.4 Pulse 81 75 74 Resp 18 18 18 B/P (MAP) 113/62 (79) 111/73 (86) 120/68 (85) Pulse Ox 96 97 98 O2 Delivery Room Air Room Air Room Air Room Air Intake and Output 11/11/18 11/11/18 11/12/18 15:00 23:00 07:00 Intake Total 280 ml 100 ml 180 ml Balance 280 ml 100 ml 180 ml CHERELLE SILVER MD Nov 12, 2018 11:39
--- NOTE | 2018-11-12 13:15 | NUR ---
Patient discharged-home with home health. Nursing Support Manager to set up with [facility]. Patient did not qualify for SNU and did not want LTC facility. Both patient and very satisfied with home health discharge. Patient alert and stable.IV discontinued. All belongings with patient. This RN helped patient out to car where picked him up.
--- NOTE | 2018-11-17 10:06 | PDOC3 ---
IM DISCHARGE SUMMARY Date of Admission Date of Admission Date of Admission: Nov 08, 2018 at 20:40 Date of Discharge Date of Discharge November 12, 2018 Primary Diagnosis Primary Diagnosis 1. Acute metabolic encephalopathy 2. Acute renal failure. 3. Dementia with behavioral disturbances. 4. Fall. 5. Physical deconditioning. 6. Pernicious anemia. 7. Gastroesophageal reflux disease with esophagitis. 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 9. History of intracranial hemorrhage. 10. Weight loss. 11. Diabetes mellitus without complication. 12. History of hyperlipidemia. 13. History of diverticulosis. 14. History of severe protein-calorie malnutrition, currently albumin is 3.4. Consults Consults Nasim Montiel MD Brief hospital course Brief hospital course This 88-year-old male, who has history of severe dementia with behavioral disturbances and who has had weakness that is getting worse and dizziness fell a few days ago, he has had multiple falls and also has had frequent episodes where he urinates at different places in the house as well as has bowel movements in different places. He has been tried on Aricept and other medications in the past, but he has refused to take any medications. He has been steadily losing weight. The patient fell a few days ago and since then he has become weaker and he is staying bedbound and not able to move. Because of that, the patient was sent to the Emergency Room. In the Emergency Room, the patient was noted to be very weak and with change in mental status as well as weakness and fall. The patient was admitted for further evaluation and management. His BUN was 19 and creatinine 1.0 and even though the BNP was 4136, the patient has been hypotensive and dehydrated. The patient was given IV fluids in the Emergency Room. His WBC count was 5.1, hemoglobin 15.4, INR 1.1. Urinalysis was unremarkable. CT scan of head shows old changes including likely from his previous fall and head injury including history of subdural hematomas, but no acute changes noted. Chest x-ray is unremarkable and x-ray of the wrist show osteopenia. The patient is quite confused and unable to provide any significant information. For more details regarding the past history, family history, social history, surgical history and other details, please refer to History and Physical. I will restart IV fluids. Consult Dr. Montiel for rehab evaluation and management. Start PT, OT. Monitor him closely. Depending on his status, he may need to go to a detention unit or a [facility]. Prognosis of this patient is extremely poor. Acute metabolic encephalopathy- improving. Dementia. Frequent falls Acute renal failure. Increased patient to eat more. Drink more fluids. Patient declined the IV fluids yesterday. Gradually patient started eating better. Weakness- slowly improving. None of the detention units has accepted the patient. The cannot take the patient home today as she is arranging the furniture in the house. She'll take him home tomorrow with home health services. Prognosis of this patient remains very poor. Yesterday I had also talked to her about considering hospice for him. Patient was discharged home with home health services. His long-term as well as short-term prognosis remains poor. Medications Medications reviewed and reconciled for discharge. Allergy Allergies Coded Allergies Type Severity Reaction Last Updated Verified Penicillins Allergy Intermediate 11/09/18 Yes Follow up in 5 days. DISPOSITION: Home health services Comments Discharge Management - 35 minutes. For other details please refer to discharge instructions CATHY MALONEY MD November 17, 2018 10:06
== END 2018-11-12 13:36 | disposition home health service (06) | DRG 682 ==
LOC: ER 17:05 → 5 NORTH 20:40
PROVIDERS: ADMIT Internal Medicine; ATTEND Internal Medicine
DX: N17.9 Acute kidney failure, unspecified (principal); G93.41 Metabolic encephalopathy; F03.91 Unspecified dementia, unspecified severity, with behavioral disturbance; I12.9 Hypertensive chronic kidney disease with stage 1 through stage 4 chronic kidney disease, or unspecified chronic kidney disease; N18.2 Chronic kidney disease, stage 2 (mild); E11.22 Type 2 diabetes mellitus with diabetic chronic kidney disease; D51.0 Vitamin B12 deficiency anemia due to intrinsic factor deficiency; D69.6 Thrombocytopenia, unspecified; E11.42 Type 2 diabetes mellitus with diabetic polyneuropathy; E78.00 Pure hypercholesterolemia, unspecified; K57.90 Diverticulosis of intestine, part unspecified, without perforation or abscess without bleeding; E78.5 Hyperlipidemia, unspecified; E86.0 Dehydration; F10.10 Alcohol abuse, uncomplicated; K21.0 Gastro-esophageal reflux disease with esophagitis; M85.80 Other specified disorders of bone density and structure, unspecified site; R29.6 Repeated falls; Z74.01 Bed confinement status; Z82.49 Family history of ischemic heart disease and other diseases of the circulatory system; Z86.73 Personal history of transient ischemic attack (TIA), and cerebral infarction without residual deficits; Z87.891 Personal history of nicotine dependence; Z90.49 Acquired absence of other specified parts of digestive tract; Z87.01 Personal history of pneumonia (recurrent)
CPT/HCPCS: 36415; 70450; 71045; 73110; 80053; 81001; 83690; 83735; 83880; 84484; 85025; 85610; 93005; 96360; 96361; J7040; 97116; 97530; 97535; 99285-25

== ENCOUNTER 2019-02-24 20:07 | Inpatient (IN) | payer OTHER ==
[~2019-02-24] VITALS: Ht 180.3 cm; Wt 70.3 kg
[~2019-02-24 20:07] MED LIST changes: -PANT40TA3 PO; +PANT40TA77 PO
[2019-02-24] MEDS ORDERED: IV NORMAL SALINE 1000ML BAG 1,000 ML IV ONE ×2 (21:00→22:00)
[2019-02-24 21:03] LABS: BASO % 1 % (0-3); EOS # 0.1 x10^3/uL (0.0-0.7); EOS % 3 % (0-3); HEMATOCRIT 41.6 % (39.0-53.0); HEMOGLOBIN 14.1 g/dL (13.0-17.5); LYMPH # 1.1 x10^3/uL (1.0-4.8); LYMPH % 25 % (24-48); MEAN CORPUSCULAR HEMOGLOBIN 31 pg (25-35); MEAN CORPUSCULAR HGB CONC 34 g/dL (31-37); MEAN CORPUSCULAR VOLUME 92 fL (79-100); MONO # 0.3 x10^3/uL (0.0-1.1); MONO % 7 % (0-9); NEUT # 2.7 x10^3/uL (1.8-7.7); NEUT % 65 % (31-73); PLATELET COUNT 107 x10^3/uL (140-400); RED BLOOD COUNT 4.52 x10^6/uL (4.30-5.70); RED CELL DISTRIBUTION WIDTH 14.4 % (11.5-14.5); WHITE BLOOD COUNT 4.2 x10^3/uL (4.0-11.0)
[2019-02-24 21:12] LABS: PROTHROMBIN TIME PATIENT 13.1 SEC (11.7-14.0)
[2019-02-24 21:15] LABS: CREATININE 1.3 mg/dL (0.7-1.3); POTASSIUM 3.9 mmol/L (3.5-5.1)
[2019-02-24 21:21] LABS: ALBUMIN 3.5 g/dL (3.4-5.0); ALBUMIN/GLOBULIN RATIO 1.1 (1.0-1.7); MAGNESIUM 1.9 mg/dL (1.8-2.4); TOTAL BILIRUBIN 0.9 mg/dL (0.2-1.0); TOTAL PROTEIN 6.6 g/dL (6.4-8.2)
--- NOTE | 2019-02-24 21:36 | RAD ---
Chest radiograph 02/24/2019 8:50 PM INDICATION: Weakness, hypotension COMPARISON: November 08, 2018 TECHNIQUE: Portable upright frontal view of the chest is provided. FINDINGS: The cardiomediastinal silhouette is within normal limits. There are no pleural effusions. There is no pulmonary vascular congestion. There is no pneumothorax. The lungs are clear. No significant osseous abnormality is identified. IMPRESSION: No acute cardiopulmonary process. Electronically signed by: Inessa Pro MD (02/24/2019 9:33 PM) [facility]
--- NOTE | 2019-02-24 21:59 | RAD ---
PQRS Compliance Statement: One or more of the following individualized dose reduction techniques were utilized for this examination: 1. Automated exposure control 2. Adjustment of the mA and/or kV according to patient size 3. Use of iterative reconstruction technique CT head and cervical spine without contrast 02/24/2019 8:50 PM INDICATION: Weakness, hypotension COMPARISON: CT head March 10, 2019 TECHNIQUE: Multiple axial CT images of the head were obtained from skull base through the vertex without intravenous contrast. Multiple axial CT images of the cervical spine were obtained without intravenous contrast. Coronal and sagittal reformats are provided. FINDINGS: Head: Ventricles, sulci and basal cisterns are prominent compatible with moderate generalized cerebral volume loss. Low-attenuation in the periventricular white matter is suggestive of chronic small vessel ischemic changes. Suspect a remote lacunar infarct involving the left midbrain. There is no hydrocephalus. Negron-white matter differentiation is normal. There is no acute intracranial hemorrhage. There is no mass, mass effect or midline shift. Posterior fossa is normal in appearance. Visualized portions of the orbits are normal. Paranasal sinuses are well aerated. Mastoid air cells are well aerated. Scalp and calvaria are normal. Cervical spine: There is thickening of the transverse ligament resulting in mild spinal canal stenosis at the C2 vertebral level. Degenerative changes are identified at the atlantoaxial articulation. There is minimal anterolisthesis of C4 on C5. There is moderate disc height loss at C3-C4, C4-C5 and C6-C7. There is advanced disc height loss at C5-C6 with endplate remodeling and irregularity. Moderate multilevel facet arthropathy and uncovertebral joint disease identified resulting in varying degrees of mild to severe neuroforaminal stenosis. At C3-C4: There is a posterior discussed by complex with severe facet arthropathy and mild uncovertebral joint disease resulting in moderate to severe bilateral neuroforaminal stenosis and mild spinal canal stenosis. At C4-C5, there is a posterior discussed by complex with severe facet arthropathy and moderate uncovertebral joint disease resulting in severe bilateral neuroforaminal stenosis and mild spinal canal stenosis. C5-C6, there is a posterior disc osteophyte complex with moderate facet and uncovertebral joint disease resulting in severe left and moderate right neuroforaminal stenosis and mild to moderate spinal canal stenosis. At C6-C7, there is a posterior disc osteophyte complex with moderate facet and severe uncovertebral joint disease resulting in moderate bilateral neuroforaminal stenosis and mild spinal canal stenosis. There is anterior wedging of T1 with 15 percent height loss, age indeterminate. There is no prevertebral soft tissue swelling. Thyroid gland is normal in appearance. Visualized portions of the lung apices are normal without evidence for suspicious pulmonary nodule or infiltrate. IMPRESSION: 1. No acute intracranial hemorrhage. Moderate generalized cerebral volume loss. Low-attenuation in the periventricular white matter is suggestive of chronic small vessel ischemic changes. Suspect a remote lacunar infarct in left midbrain versus chronic small vessel ischemic changes. 2. No acute fracture or malalignment of the cervical spine. Moderate to advanced cervical spondylosis. 3. Anterior wedging of the T1 vertebral body with 15 percent height loss, age indeterminate. Correlate with the site of point tenderness. If there is persistent clinical concern, MRI may be of benefit. Electronically signed by: Inessa Pro MD (02/24/2019 9:56 PM) [facility]
[2019-02-24 23:45] LABS: BILIRUBIN,URINE NEGATIVE (NEG); CLARITY,URINE CLEAR; COLOR,URINE YELLOW; NITRITE,URINE NEGATIVE (NEG); PH,URINE 5.5; PROTEIN,URINE NEGATIVE (NEG-TRACE); UROBILINOGEN,URINE 0.2 mg/dL (0.2 mg/dL)
[2019-02-24 23:50] LABS: SQUAMOUS EPITHELIAL CELL,UR FEW /LPF
[2019-02-24 23:51] LABS: BACTERIA,URINE 0 /HPF (0-FEW); RBC,URINE 0 /HPF (0-2)
[2019-02-25] VITALS (8 sets, daily range): BP systolic 94–110; BP diastolic 53–70
[2019-02-25] MEDS ORDERED: ONDANSETRON PF 4 MG/2 ML VIAL. IV PRN (00:15)
[2019-02-25] MEDS ORDERED: IV NORMAL SALINE 1000ML BAG 1,000 ML IV ONE (00:15)
--- NOTE | 2019-02-25 00:15 | PHYS DOC ---
Past Medical History Past Medical History: Dementia, High Cholesterol, Hypertension, Pancreatitis Past Surgical History: Cholecystectomy, Tonsillectomy Alcohol Use: Heavy Drug Use: None Adult General Chief Complaint Chief Complaint: HYPOTENSION HPI HPI Patient is a 88 year old [f__sex] who presents with [] Review of Systems Review of Systems Constitutional: Denies fever or chills [] Eyes: Denies change in visual acuity, redness, or eye pain [] HENT: Denies nasal congestion or sore throat [] Respiratory: Denies cough or shortness of breath [] Cardiovascular: No additional information not addressed in HPI [] GI: Denies abdominal pain, nausea, vomiting, bloody stools or diarrhea [] : Denies dysuria or hematuria [] Musculoskeletal: Denies back pain or joint pain [] Integument: Denies rash or skin lesions [] Neurologic: Denies headache, focal weakness or sensory changes [] Endocrine: Denies polyuria or polydipsia [] All other systems were reviewed and found to be within normal limits, except as documented in this note. Current Medications Current Medications Current Medications Medications (Trade) Dose Ordered Sig/Maryluo Start Time Stop Time Status Last Admin Dose Admin Ondansetron HCl (Zofran) 4 mg PRN Q8HRS PRN 02/25/19 00:15 02/26/19 00:14 UNV Sodium Chloride 1,000 ml @ 100 mls/hr 1X ONCE 02/25/19 00:15 02/25/19 10:14 UNV Allergies Allergies Allergies Coded Allergies Type Severity Reaction Last Updated Verified Penicillins Allergy Intermediate 11/09/18 Yes Physical Exam Physical Exam Constitutional: Well developed, well nourished, no acute distress, non-toxic appearance. [] HENT: Normocephalic, atraumatic, bilateral external ears normal, oropharynx moist, no oral exudates, nose normal. [] Eyes: PERRLA, EOMI, conjunctiva normal, no discharge. [] Neck: Normal range of motion, no tenderness, supple, no stridor. [] Cardiovascular:Heart rate regular rhythm, no murmur [] Lungs & Thorax: Bilateral breath sounds clear to auscultation [] Abdomen: Bowel sounds normal, soft, no tenderness, no masses, no pulsatile masses. [] Skin: Warm, dry, no erythema, no rash. [] Back: No tenderness, no CVA tenderness. [] Extremities: No tenderness, no cyanosis, no clubbing, ROM intact, no edema. [] Neurologic: Alert and oriented X 3, normal motor function, normal sensory function, no focal deficits noted. [] Psychologic: Affect normal, judgement normal, mood normal. [] Current Patient Data Vital Signs Vital Signs Date Time Temp Pulse Resp B/P (MAP) Pulse Ox O2 Delivery O2 Flow Rate FiO2 02/24/19 23:39 98 32 111/64 (80) 90 Room Air 02/24/19 20:07 97.4 97.4 Lab Values Laboratory Tests Test 02/24/19 20:10 02/24/19 23:38 White Blood Count 4.2 x10^3/uL (4.0-11.0) Red Blood Count 4.52 x10^6/uL (4.30-5.70) Hemoglobin 14.1 g/dL (13.0-17.5) Hematocrit 41.6 % (39.0-53.0) Mean Corpuscular Volume 92 fL (79-100) Mean Corpuscular Hemoglobin 31 pg (25-35) Mean Corpuscular Hemoglobin Concent 34 g/dL (31-37) Red Cell Distribution Width 14.4 % (11.5-14.5) Platelet Count 107 x10^3/uL (140-400) L Neutrophils (%) (Auto) 65 % (31-73) Lymphocytes (%) (Auto) 25 % (24-48) Monocytes (%) (Auto) 7 % (0-9) Eosinophils (%) (Auto) 3 % (0-3) Basophils (%) (Auto) 1 % (0-3) Neutrophils # (Auto) 2.7 x10^3/uL (1.8-7.7) Lymphocytes # (Auto) 1.1 x10^3/uL (1.0-4.8) Monocytes # (Auto) 0.3 x10^3/uL (0.0-1.1) Eosinophils # (Auto) 0.1 x10^3/uL (0.0-0.7) Basophils # (Auto) 0.0 x10^3/uL (0.0-0.2) Prothrombin Time 13.1 SEC (11.7-14.0) Prothrombin Time INR 1.0 (0.8-1.1) Activated Partial Thromboplast Time 38 SEC (24-38) Sodium Level 140 mmol/L (136-145) Potassium Level 3.9 mmol/L (3.5-5.1) Chloride Level 102 mmol/L (98-107) Carbon Dioxide Level 27 mmol/L (21-32) Anion Gap 11 (6-14) Blood Urea Nitrogen 19 mg/dL (8-26) Creatinine 1.3 mg/dL (0.7-1.3) Estimated GFR (Cockcroft-Gault) 52.0 BUN/Creatinine Ratio 15 (6-20) Glucose Level 113 mg/dL (70-99) H Lactic Acid Level 2.8 mmol/L (0.4-2.0) H Calcium Level 9.0 mg/dL (8.5-10.1) Magnesium Level 1.9 mg/dL (1.8-2.4) Total Bilirubin 0.9 mg/dL (0.2-1.0) Aspartate Amino Transferase (AST) 19 U/L (15-37) Alanine Aminotransferase (ALT) 9 U/L (16-63) L Alkaline Phosphatase 83 U/L (46-116) Creatine Kinase 81 U/L (39-308) Creatine Kinase MB (Mass) 3.8 ng/mL (0.0-3.6) H Creatine Kinase MB Relative Index 4.7 % (0-4) H Troponin I Quantitative < 0.017 ng/mL (0.000-0.055) Total Protein 6.6 g/dL (6.4-8.2) Albumin 3.5 g/dL (3.4-5.0) Albumin/Globulin Ratio 1.1 (1.0-1.7) Urine Collection Type Unknown Urine Color Yellow Urine Clarity Clear Urine pH 5.5 Urine Specific Aristes <=1.005 Urine Protein Negative mg/dL (NEG-TRACE) Urine Glucose (UA) Negative mg/dL (NEG) Urine Ketones (Stick) Negative mg/dL (NEG) Urine Blood Negative (NEG) Urine Nitrite Negative (NEG) Urine Bilirubin Negative (NEG) Urine Urobilinogen Dipstick 0.2 mg/dL (0.2 mg/dL) Urine Leukocyte Esterase Small (NEG) Urine RBC 0 /HPF (0-2) Urine WBC 5-10 /HPF (0-4) Urine Squamous Epithelial Cells Few /LPF Urine Bacteria 0 /HPF (0-FEW) Laboratory Tests 02/24/19 20:10 Laboratory Tests 02/24/19 20:10 EKG EKG @2008 Sinus tachycardia at 106bpm, NO ST elevation, nonspecific t wave inversion I and aVL. Radiology/Procedures Radiology/Procedures PROCEDURE: CT HEAD AND CERVICAL SPINE WO RS Compliance Statement: One or more of the following individualized dose reduction techniques were utilized for this examination: 1. Automated exposure control 2. Adjustment of the mA and/or kV according to patient size 3. Use of iterative reconstruction technique CT head and cervical spine without contrast 02/24/2019 8:50 PM INDICATION: Weakness, hypotension COMPARISON: CT head March 10, 2019 TECHNIQUE: Multiple axial CT images of the head were obtained from skull base through the vertex without intravenous contrast. Multiple axial CT images of the cervical spine were obtained without intravenous contrast. Coronal and sagittal reformats are provided. FINDINGS: Head: Ventricles, sulci and basal cisterns are prominent compatible with moderate generalized cerebral volume loss. Low-attenuation in the periventricular white matter is suggestive of chronic small vessel ischemic changes. Suspect a remote lacunar infarct involving the left midbrain. There is no hydrocephalus. Negron-white matter differentiation is normal. There is no acute intracranial hemorrhage. There is no mass, mass effect or midline shift. Posterior fossa is normal in appearance. Visualized portions of the orbits are normal. Paranasal sinuses are well aerated. Mastoid air cells are well aerated. Scalp and calvaria are normal. Cervical spine: There is thickening of the transverse ligament resulting in mild spinal canal stenosis at the C2 vertebral level. Degenerative changes are identified at the atlantoaxial articulation. There is minimal anterolisthesis of C4 on C5. There is moderate disc height loss at C3-C4, C4-C5 and C6-C7. There is advanced disc height loss at C5-C6 with endplate remodeling and irregularity. Moderate multilevel facet arthropathy and uncovertebral joint disease identified resulting in varying degrees of mild to severe neuroforaminal stenosis. At C3-C4: There is a posterior discussed by complex with severe facet arthropathy and mild uncovertebral joint disease resulting in moderate to severe bilateral neuroforaminal stenosis and mild spinal canal stenosis. At C4-C5, there is a posterior discussed by complex with severe facet arthropathy and moderate uncovertebral joint disease resulting in severe bilateral neuroforaminal stenosis and mild spinal canal stenosis. C5-C6, there is a posterior disc osteophyte complex with moderate facet and uncovertebral joint disease resulting in severe left and moderate right neuroforaminal stenosis and mild to moderate spinal canal stenosis. At C6-C7, there is a posterior disc osteophyte complex with moderate facet and severe uncovertebral joint disease resulting in moderate bilateral neuroforaminal stenosis and mild spinal canal stenosis. There is anterior wedging of T1 with 15 percent height loss, age indeterminate. There is no prevertebral soft tissue swelling. Thyroid gland is normal in appearance. Visualized portions of the lung apices are normal without evidence for suspicious pulmonary nodule or infiltrate. IMPRESSION: 1. No acute intracranial hemorrhage. Moderate generalized cerebral volume loss. Low-attenuation in the periventricular white matter is suggestive of chronic small vessel ischemic changes. Suspect a remote lacunar infarct in left midbrain versus chronic small vessel ischemic changes. 2. No acute fracture or malalignment of the cervical spine. Moderate to advanced cervical spondylosis. 3. Anterior wedging of the T1 vertebral body with 15 percent height loss, age indeterminate. Correlate with the site of point tenderness. If there is persistent clinical concern, MRI may be of benefit. Electronically signed by: Inessa Pro MD (02/24/2019 9:56 PM) [facility] PROCEDURE: PORTABLE CHEST 1V Chest radiograph 02/24/2019 8:50 PM INDICATION: Weakness, hypotension COMPARISON: November 08, 2018 TECHNIQUE: Portable upright frontal view of the chest is provided. FINDINGS: The cardiomediastinal silhouette is within normal limits. There are no pleural effusions. There is no pulmonary vascular congestion. There is no pneumothorax. The lungs are clear. No significant osseous abnormality is identified. IMPRESSION: No acute cardiopulmonary process. Electronically signed by: Inessa Pro MD (02/24/2019 9:33 PM) [facility] Course & Med Decision Making Course & Med Decision Making Pertinent Labs and Imaging studies reviewed. (See chart for details) [] Dragon Disclaimer Dragon Disclaimer This electronic medical record was generated, in whole or in part, using a voice recognition dictation system. Departure Departure Impression: Primary Impression: Hypotension Additional Impressions: Lactic acidosis Fall Disposition: ADMITTED INPATIENT Admitting Physician: Kayley Carlson Condition: GUARDED Referrals: KAYLEY CARLSON MD (PCP) Critical Care Time Critical care time was 30 minutes which includes time at bedside, spent in discussion of patient's care with specialists and/or family members, with i nterpretation of laboratory and/or radiological studies and is exclusive of procedures. Problem Qualifiers Primary Impression: Hypotension Hypotension type: unspecified hypotension type Qualified Codes: I95.9 - Hypotension, unspecified Additional Impressions: Fall Encounter type: initial encounter Qualified Codes: W19.XXXA - Unspecified fall, initial encounter ROBBIN KEBEDE DO Feb 25, 2019 00:15
--- NOTE | 2019-02-25 10:48 | EKG ---
[facility] [address] [place] [address] Test Date: 2019-02-24 Test Time: 20:09:58 Pat Name: JOSE HUGHES Department: Room: Gender: M Bottom Scrubber: : 1930 Requested By: ROBBIN KEBEDE Order Number: [id number] Reading MD: Measurements Intervals [place] Rate: 106 P: 90 [place]: 150 QRS: -66 QRSD: 96 T: 106 QT: 352 QTc: 469 Interpretive Statements SINUS TACHYCARDIA INTERPOLATED ATRIAL PREMATURE COMPLEX(ES) ABNORMAL LEFT AXIS DEVIATION CONSIDER LEFT VENTRICULAR HYPERTROPHY QRS(T) CONTOUR ABNORMALITY CONSISTENT WITH ANTEROSEPTAL INFARCT PROBABLY OLD CONSISTENT WITH INFERIOR INFARCT PROBABLY OLD ST & T ABNORMALITY, CONSIDER HIGH LATERAL ISCHEMIA OR LEFT VENTRICULAR STRAIN ABNORMAL ECG No previous ECG available for comparison
[2019-02-25] MEDS: IV NORMAL SALINE 1000ML BAG 1,000 ML IV SCH (11:34)
--- NOTE | 2019-02-25 11:34 | PDOC ---
Provider Note Provider Note Patient seen. History and Physical dictated. See dictation#[id number]. He had a short of PAT.Monitor.Asymptomatic. CATHY MALONEY MD Feb 25, 2019 11:34
--- NOTE | 2019-02-25 12:37 | HP ---
ADMIT DATE: 02/25/2019 HISTORY OF PRESENT ILLNESS: This 88-year-old male who has a history of dementia with behavioral disturbances and who lives at his home with his was noted to be very hypotensive yesterday and the called the ambulance and the patient was brought to the Emergency Room. thought that the blood pressure is around 50/50 both upper and lower numbers at home. As per recently on 02/02/2019, the patient was started on Seroquel 25 mg in a.m. and 25 mg 2 tablets in p.m. by a nurse practitioner from the insurance company. Subsequently, the patient was seen by the nurse practitioner again yesterday and she upped the dose from 25 mg once in a.m. to 25 mg 2 in a.m. and 4 in p.m. Yesterday evening, the patient received the first dose of four tablets in the evening and then within about 35 minutes, he became limp and poorly responsive. 911 was called and the patient was noted to be very hypotensive. The patient was given IV fluids including IV bolus in the Emergency Room. The patient is a very poor historian and no information can be obtained from the patient. Blood pressure went down to 77/52 in the Emergency Room. As per , blood pressure was around 1:30 in the morning yesterday. In the Emergency Room, sodium was 140, potassium 3.9, BUN 19, creatinine 1.3. Troponin levels were normal. Lactic acid level was 2.8 initially and followup was 1.3, albumin is 3.5, magnesium 1.9, CO2 level is 27. WBC count 4.2, hemoglobin 14.1. Urinalysis, 5-10 wbc's, small leukocyte esterase, 0 bacteria. Chest x-ray did not show any acute changes. 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 Cervical spine shows moderate to advanced cervical spondylosis, wedging of the T1 vertebral body with a 15% height loss. SYSTEMS REVIEW: The patient denies any dizziness, chest pains, back pain, joint pains. However, he is confused and is a very poor historian, unable to do systems review. PAST MEDICAL HISTORY: Noted to have Alzheimer's disease with behavioral disturbances, recurrent falls, dizziness, severe physical deconditioning, history of dehydration, pernicious anemia, gastroesophageal reflux disease with esophagitis, hypertension with CKD 2, history of intracranial hemorrhage, weight loss, diabetes mellitus, hyperlipidemia, diverticulosis, severe protein-calorie malnutrition. PAST SURGICAL HISTORY: History of intracranial hemorrhage, cholecystectomy. ALLERGIES: THE PATIENT IS ALLERGIC TO PENICILLIN. FAMILY HISTORY: Brother had alcoholism. Father had hypertension. Mother had hypertension and pneumonia. SOCIAL HISTORY: Past history of smoking. No history of drug abuse. The patient used to drink alcohol heavily in the past. PHYSICAL EXAMINATION: VITAL SIGNS: Pulse 90, respirations 15, blood pressure 79/50, temperature 97.5. Blood pressure is 102/68 this morning. GENERAL: The patient is alert, confused, not in acute distress. EYES: Pupils reacting to light. Conjunctivae pale. Sclerae muddy. HEENT: Unremarkable. NECK: Supple. JVP normal. No thyromegaly. Trachea midline. LUNGS: Clear. CARDIOVASCULAR: S1, S2 regular. ABDOMEN: Soft, nontender, no guarding, no rigidity. Bowel sounds present. EXTREMITIES: No edema. CENTRAL NERVOUS SYSTEM: Alert, confused. NEUROLOGIC: Moves all extremities. LABORATORY FINDINGS: As noted earlier. IMPRESSION: 1. Acute hypotension, likely due to side effects of Seroquel. 2. Dehydration. 3. Dementia with behavioral disturbance. 4. Gastroesophageal reflux disease. 5. Weight loss. 6. History of intracranial hemorrhage. 7. History of hyperlipidemia. 8. History of diverticulosis. 9. History of hypertension. PLAN: In the past, the patient was given Aricept and Lexapro and other medications, but the patient declined to take them. He did take Seroquel since 02/02, but because of the adverse reactions, he cannot tolerate the medication, so we will discontinue Seroquel. Give IV fluids. Even though his lactic acid level is elevated, it may be due to dehydration. Clinically, no sepsis noted. For details, please refer to the orders. I have discussed the patient's condition and treatment extensively with patient's on phone. Please refer to the orders. I will also order PT/OT. PRARORY MALONEY MD DR: LAMBERTO/fang JOB#: [id number] / [id number]
[2019-02-25] MEDS: HEPARIN for SUB-Q USE 5,000 UNIT/ML VIAL. SQ SCH ×2 (17:05→21:00)
[2019-02-26] MEDS: IV NORMAL SALINE 1000ML BAG 1,000 ML IV SCH ×2 (00:35→10:26)
[2019-02-26 03:58] VITALS: BP 97/66
[2019-02-26 04:53] LABS: BASO % 1 % (0-3); EOS # 0.2 x10^3/uL (0.0-0.7); EOS % 6 % (0-3); HEMATOCRIT 36.2 % (39.0-53.0); HEMOGLOBIN 12.4 g/dL (13.0-17.5); LYMPH # 1.3 x10^3/uL (1.0-4.8); LYMPH % 32 % (24-48); MEAN CORPUSCULAR HEMOGLOBIN 31 pg (25-35); MEAN CORPUSCULAR HGB CONC 34 g/dL (31-37); MEAN CORPUSCULAR VOLUME 92 fL (79-100); MONO # 0.3 x10^3/uL (0.0-1.1); MONO % 7 % (0-9); NEUT # 2.1 x10^3/uL (1.8-7.7); NEUT % 54 % (31-73); PLATELET COUNT 93 x10^3/uL (140-400); RED BLOOD COUNT 3.95 x10^6/uL (4.30-5.70); RED CELL DISTRIBUTION WIDTH 14.1 % (11.5-14.5)
[2019-02-26 05:09] LABS: ALBUMIN 2.7 g/dL (3.4-5.0); ALBUMIN/GLOBULIN RATIO 1.1 (1.0-1.7); CALCIUM 8.2 mg/dL (8.5-10.1); CREATININE 1.2 mg/dL (0.7-1.3); MAGNESIUM 1.7 mg/dL (1.8-2.4); TOTAL BILIRUBIN 0.8 mg/dL (0.2-1.0); TOTAL PROTEIN 5.2 g/dL (6.4-8.2)
[2019-02-26 07:00] VITALS: BP 98/66
[2019-02-26] MEDS: HEPARIN for SUB-Q USE 5,000 UNIT/ML VIAL. SQ SCH ×2 (09:16→21:51)
--- NOTE | 2019-02-26 09:25 | PDOC ---
IM PROGRESS NOTES- Subjective Subjective Pulled out IV per staff.Sleeping now. Objective Vitals/I&O Vital Signs Date Time Temp Pulse Resp B/P (MAP) Pulse Ox O2 Delivery O2 Flow Rate FiO2 02/26/19 07:00 98.2 61 18 98/66 (77) 98 Room Air 98.2 I & O 02/25/19 02/25/19 02/26/19 14:59 22:59 06:59 Intake Total 320 ml 300 ml 360 ml Balance 320 ml 300 ml 360 ml Physical Exam Physical Exam GENERAL: The patient is alert, confused, not in acute distress. chronically ill,malnourished HEENT: Unremarkable. NECK: Supple. JVP normal. No thyromegaly. Trachea midline. LUNGS: Clear. CARDIOVASCULAR: S1, S2 regular. ABDOMEN: Soft, nontender, no guarding, no rigidity. Bowel sounds present. EXTREMITIES: No edema. CENTRAL NERVOUS SYSTEM: Alert, confused. NEUROLOGIC: Moves all extremities. Labs Laboratory Tests Test 02/26/19 04:40 White Blood Count 4.0 x10^3/uL (4.0-11.0) Red Blood Count 3.95 x10^6/uL (4.30-5.70) L Hemoglobin 12.4 g/dL (13.0-17.5) L Hematocrit 36.2 % (39.0-53.0) L Mean Corpuscular Volume 92 fL (79-100) Mean Corpuscular Hemoglobin 31 pg (25-35) Mean Corpuscular Hemoglobin Concent 34 g/dL (31-37) Red Cell Distribution Width 14.1 % (11.5-14.5) Platelet Count 93 x10^3/uL (140-400) L Neutrophils (%) (Auto) 54 % (31-73) Lymphocytes (%) (Auto) 32 % (24-48) Monocytes (%) (Auto) 7 % (0-9) Eosinophils (%) (Auto) 6 % (0-3) H Basophils (%) (Auto) 1 % (0-3) Neutrophils # (Auto) 2.1 x10^3/uL (1.8-7.7) Lymphocytes # (Auto) 1.3 x10^3/uL (1.0-4.8) Monocytes # (Auto) 0.3 x10^3/uL (0.0-1.1) Eosinophils # (Auto) 0.2 x10^3/uL (0.0-0.7) Basophils # (Auto) 0.0 x10^3/uL (0.0-0.2) Sodium Level 142 mmol/L (136-145) Potassium Level 4.0 mmol/L (3.5-5.1) Chloride Level 108 mmol/L (98-107) H Carbon Dioxide Level 25 mmol/L (21-32) Anion Gap 9 (6-14) Blood Urea Nitrogen 16 mg/dL (8-26) Creatinine 1.2 mg/dL (0.7-1.3) Estimated GFR (Cockcroft-Gault) 57.0 BUN/Creatinine Ratio 13 (6-20) Glucose Level 82 mg/dL (70-99) Calcium Level 8.2 mg/dL (8.5-10.1) L Magnesium Level 1.7 mg/dL (1.8-2.4) L Total Bilirubin 0.8 mg/dL (0.2-1.0) Aspartate Amino Transferase (AST) 13 U/L (15-37) L Alanine Aminotransferase (ALT) 12 U/L (16-63) L Alkaline Phosphatase 58 U/L (46-116) Total Protein 5.2 g/dL (6.4-8.2) L Albumin 2.7 g/dL (3.4-5.0) L Albumin/Globulin Ratio 1.1 (1.0-1.7) Laboratory Tests 02/26/19 04:40 Laboratory Tests 02/26/19 04:40 Meds Current Medications Medications (Trade) Dose Ordered Sig/Marylou Route PRN Reason Start Time Stop Time Status Last Admin Dose Admin Sodium Chloride 1,000 ml @ 75 mls/hr [id number] IV 02/25/19 11:15 02/25/19 11:34 Heparin Sodium (Porcine) (Heparin Sodium) 5,000 unit Q12HR SQ 02/25/19 12:00 02/26/19 09:17 Assessment Assessment 1. Acute hypotension, likely due to side effects of Seroquel. 2. Dehydration. 3. Dementia with behavioral disturbance. 4. Gastroesophageal reflux disease. 5. Weight loss. 6. History of intracranial hemorrhage. 7. History of hyperlipidemia. 8. History of diverticulosis. 9. History of hypertension. PLAN: In the past, the patient was given Aricept and Lexapro and other medications, but the patient declined to take them. He did take Seroquel since 02/02, but because of the adverse reactions, he cannot tolerate the medication, so we will discontinue Seroquel. Give IV fluids. Even though his lactic acid level is elevated, it may be due to dehydration. Clinically, no sepsis noted. For details, please refer to the orders. I have discussed the patient's condition and treatment extensively with patient's on phone. Please refer to the orders. I will also order PT/OT. Dehydration improving- IV fluids Hypomagnesemia- replace. Severe malnutrition- encourage oral intake. Anemia- Hb- 12.4 Dementia with behavioral disturbance.Start Aricept,Celexa. Hypotension BP 98/66.Monitor. Physical deconditioning- Gait unsteady.PT/OT. Prognosis is poor. Plan Plan For more details regarding further plans, please refer to the orders. CATHY MALONEY MD Feb 26, 2019 09:25
[2019-02-26] MEDS: CITALOPRAM 10 MG TABLET. PO SCH (09:35)
[2019-02-26] MEDS ORDERED: MAGNESIUM SULFATE 2GM 50 ML IV ONE (10:00)
[2019-02-26 11:00] VITALS: BP 101/69
--- NOTE | 2019-02-26 13:58 | NUR ---
Pt oriented to self only, states he is at home, has attempted to get dressed because "I need to walk around the house." Does not use the call light when he needs assistance and gets OOB without asking for help. Unsteady gait. Fall precautions in place. Pt pulled L Hand IV this morning because "It was itching and it bothered me." Pt raises his voice and has a tendency to contradict staff members but has not been verbally or physically aggressive and can eventually be redirected.
[2019-02-26 15:00] VITALS: BP 120/76
[2019-02-26 19:38] VITALS: BP 124/85
[2019-02-26] MEDS ORDERED: DONEPEZIL HCL 5 MG TABLET. PO SCH (21:00)
[2019-02-26 23:54] VITALS: BP 117/83
[2019-02-27] MEDS: IV NORMAL SALINE 1000ML BAG 1,000 ML IV SCH (03:15)
[2019-02-27 03:24] VITALS: BP 122/83
[2019-02-27 04:23] LABS: BASO % 1 % (0-3); EOS # 0.2 x10^3/uL (0.0-0.7); EOS % 6 % (0-3); HEMATOCRIT 37.8 % (39.0-53.0); HEMOGLOBIN 12.9 g/dL (13.0-17.5); LYMPH # 1.3 x10^3/uL (1.0-4.8); LYMPH % 31 % (24-48); MEAN CORPUSCULAR HEMOGLOBIN 31 pg (25-35); MEAN CORPUSCULAR HGB CONC 34 g/dL (31-37); MEAN CORPUSCULAR VOLUME 91 fL (79-100); MONO # 0.3 x10^3/uL (0.0-1.1); MONO % 8 % (0-9); NEUT # 2.3 x10^3/uL (1.8-7.7); NEUT % 55 % (31-73); PLATELET COUNT 94 x10^3/uL (140-400); RED BLOOD COUNT 4.15 x10^6/uL (4.30-5.70); RED CELL DISTRIBUTION WIDTH 14.6 % (11.5-14.5); WHITE BLOOD COUNT 4.2 x10^3/uL (4.0-11.0)
[2019-02-27 04:42] LABS: CALCIUM 8.2 mg/dL (8.5-10.1); GFR 70.4; POTASSIUM 3.7 mmol/L (3.5-5.1)
[2019-02-27 07:00] VITALS: BP 132/93
[2019-02-27] MEDS: CITALOPRAM 10 MG TABLET. PO SCH (08:46)
[2019-02-27] MEDS: HEPARIN for SUB-Q USE 5,000 UNIT/ML VIAL. SQ SCH (08:57)
[2019-02-27] MEDS ORDERED: CITA10TA8 PO (09:11)
[2019-02-27] MEDS ORDERED: DONE5TAB56 PO (09:11)
--- NOTE | 2019-02-27 09:16 | SNU/HH DC ---
DISCHARGE WITH HOME HEALTH DISCHARGE INFORMATION: Final Diagnosis: Problems Medical Problems: (1) Fall Status: Acute Condition on Discharge: Stable HOME HEALTH: Face to Face: I certify this patient is under my care and that I, or a nurse practitioner or physician's retail assistant working with me, had a face to face encounter that meets the physician face to face encounter requirements with this patient on 02/27/2019. Medical Complications: Dementia RN For Eval/Treatment: Yes Pt Meets Homebound Status: Poor coordination w/ amb. POST DISCHARGE ORDERS: Activity Instructions for Disc: Activity as tolerated (with walker and supe rvision) Weight Bearing Status after Di: As tolerated DIET AFTER DISCHARGE: Regular FOLLOW-UP: PCP to follow Home Health: yes Follow up with: Dr.Pratip Maloney in 5 days TREATMENT/EQUIPMENT ORDERS: Adaptive Equipment Issued: Four wheeled walker CERTIFICATION STATEMENT: Certification Statement: Certification Statement: Based on the above finding, I certify that this patient is confined to the home and needs intermittent senior care care, physical therapy and/or speech therapy, or continues to need occupational therapy.~ This patient is under my care, and I have initiated the establishment of the plan of care.~ This patient will be followed by myself or a community physician who will periodically review the plan of care. Home Meds Active Scripts Donepezil Hcl (ARICEPT) 5 Mg Tablet, 5 MG PO QHS for dementia, #30 TAB 5 Refills Prov:CATHY MALONEY MD 02/27/19 Citalopram Hydrobromide (CELEXA) 10 Mg Tablet, 10 MG PO DAILY for anxiety for 30 Days, #30 TAB Prov:CATHY MALONEY MD 02/27/19 Acetaminophen (TYLENOL EXTRA STRENGTH) 500 Mg Tablet, 500 MG PO BID PRN for PAIN, #120 Prov:OLIVA SIMMONS [employer] 01/18/14 CATHY MALONEY MD Feb 27, 2019 09:16
--- NOTE | 2019-02-27 10:25 | PDOC3 ---
IM DISCHARGE SUMMARY Date of Admission Date of Admission Date of Admission: Feb 25, 2019 at 00:05 Date of Discharge Date of Discharge 02/27/19 Primary Diagnosis Primary Diagnosis 1. Acute hypotension, likely due to side effects of Seroquel. 2. Dehydration. 3. Dementia with behavioral disturbance. 4. Gastroesophageal reflux disease. 5. Weight loss. 6. History of intracranial hemorrhage. 7. History of hyperlipidemia. 8. History of diverticulosis. 9. History of hypertension. 10. Physical deconditioning Consults Consults Labs Labs Laboratory Tests Test 02/27/19 03:45 White Blood Count 4.2 x10^3/uL (4.0-11.0) Red Blood Count 4.15 x10^6/uL (4.30-5.70) L Hemoglobin 12.9 g/dL (13.0-17.5) L Hematocrit 37.8 % (39.0-53.0) L Mean Corpuscular Volume 91 fL (79-100) Mean Corpuscular Hemoglobin 31 pg (25-35) Mean Corpuscular Hemoglobin Concent 34 g/dL (31-37) Red Cell Distribution Width 14.6 % (11.5-14.5) H Platelet Count 94 x10^3/uL (140-400) L Neutrophils (%) (Auto) 55 % (31-73) Lymphocytes (%) (Auto) 31 % (24-48) Monocytes (%) (Auto) 8 % (0-9) Eosinophils (%) (Auto) 6 % (0-3) H Basophils (%) (Auto) 1 % (0-3) Neutrophils # (Auto) 2.3 x10^3/uL (1.8-7.7) Lymphocytes # (Auto) 1.3 x10^3/uL (1.0-4.8) Monocytes # (Auto) 0.3 x10^3/uL (0.0-1.1) Eosinophils # (Auto) 0.2 x10^3/uL (0.0-0.7) Basophils # (Auto) 0.0 x10^3/uL (0.0-0.2) Sodium Level 142 mmol/L (136-145) Potassium Level 3.7 mmol/L (3.5-5.1) Chloride Level 108 mmol/L (98-107) H Carbon Dioxide Level 26 mmol/L (21-32) Anion Gap 8 (6-14) Blood Urea Nitrogen 11 mg/dL (8-26) Creatinine 1.0 mg/dL (0.7-1.3) Estimated GFR (Cockcroft-Gault) 70.4 Glucose Level 81 mg/dL (70-99) Calcium Level 8.2 mg/dL (8.5-10.1) L Laboratory Tests 02/27/19 03:45 Laboratory Tests 02/27/19 03:45 Brief hospital course Brief hospital course This 88-year-old male who has a history of dementia with behavioral disturbances and who lives at his home with his was noted to be very hypotensive yesterday and the called the ambulance and the patient was brought to the Emergency Room. thought that the blood pressure is around 50/50 both upper and lower numbers at home. As per recently on 02/02/2019, the patient was started on Seroquel 25 mg in a.m. and 25 mg 2 tablets in p.m. by a nurse practitioner from the insurance company. Subsequently, the patient was seen by the nurse practitioner again yesterday and she upped the dose from 25 mg once in a.m. to 25 mg 2 in a.m. and 4 in p.m. Yesterday evening, the patient received the first dose of four tablets in the evening and then within about 35 minutes, he became limp and poorly responsive. 911 was called and the patient was noted to be very hypotensive. The patient was given IV fluids including IV bolus in the Emergency Room. The patient is a very poor historian and no information can be obtained from the patient. Blood pressure went down to 77/52 in the Emergency Room. As per , blood pressure was around 1:30 in the morning yesterday. In the Emergency Room, sodium was 140, potassium 3.9, BUN 19, creatinine 1.3. Troponin levels were normal. Lactic acid level was 2.8 initially and followup was 1.3, albumin is 3.5, magnesium 1.9, CO2 level is 27. WBC count 4.2, hemoglobin 14.1. Urinalysis, 5-10 wbc's, small leukocyte esterase, 0 bacteria. Chest x-ray did not show any acute changes. 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 Cervical spine shows moderate to advanced cervical spondylosis, wedging of the T1 vertebral body with a 15% height loss. For more details regarding the past history, family history, social history, surgical history and other details, please refer to History and Physical. In the past, the patient was given Aricept and Lexapro and other medications, but the patient declined to take them. He did take Seroquel since 02/02, but because of the adverse reactions, he cannot tolerate the medication, so we will discontinue Seroquel. Give IV fluids. Even though his lactic acid level is elevated, it may be due to dehydration. Clinically, no sepsis noted. For details, please refer to the orders. I have discussed the patient's condition and treatment extensively with patient's on phone. Please refer to the orders. I will also order PT/OT. Dehydration improving- IV fluids Hypomagnesemia- replace. Severe malnutrition- encourage oral intake. Anemia- Hb- 12.4 Dementia with behavioral disturbance.Start Aricept,Celexa. Hypotension BP 98/66.Resolved. Physical deconditioning- Gait unsteady.PT/OT.PT recommending SNF. D/w -,patient.Ok to discharge to SNF. Prognosis is poor. Medications Current Medications Medications (Trade) Dose Ordered Sig/Marylou Route PRN Reason Start Time Stop Time Status Last Admin Dose Admin Donepezil HCl (Aricept) 5 mg QHS PO 02/26/19 21:00 02/26/19 21:51 Medications reviewed and reconciled for discharge. Allergy Allergies Coded Allergies Type Severity Reaction Last Updated Verified Penicillins Allergy Intermediate 11/09/18 Yes Follow up in 5 days. DISPOSITION: Longterm facility Comments Discharge Management - 35 minutes. For other details please refer to discharge instructions CATHY MALONEY MD Feb 27, 2019 10:25
--- NOTE | 2019-02-27 10:41 | SNU/HH DC ---
DISCHARGE ORDERS DISCHARGE INFORMATION: DISCHARGE DATE: Feb 27, 2019 FINAL DIAGNOSIS Problems Medical Problems: (1) Fall Status: Acute CONDITION ON DISCHARGE: Stable JAIL: SNF STAY <30 DAYS: Yes POST DISCHARGE ORDERS: ACTIVITY ORDERS: Activity as tolerated (with walker and supervision) WEIGHT BEARING STATUS: As tolerated DIET AFTER DISCHARGE: Regular FOLLOW-UP: PHYSICIAN FOLLOW-UP: Dr.Pratip Maloney in 5 days TREATMENT/EQUIPMENT ORDERS: ADAPTIVE EQUIPMENT NEEDED: Four wheeled walker Physical Therapy For: Evalulation/Treatment Occupational Therapy For: Evaluation/Treatment DISCHARGE MEDICATIONS: Home Meds Active Scripts Donepezil Hcl (ARICEPT) 5 Mg Tablet, 5 MG PO QHS for dementia, #30 TAB 5 Refills Prov:CATHY MALONEY MD 02/27/19 Citalopram Hydrobromide (CELEXA) 10 Mg Tablet, 10 MG PO DAILY for anxiety for 30 Days, #30 TAB Prov:CATHY MALONEY MD 02/27/19 Acetaminophen (TYLENOL EXTRA STRENGTH) 500 Mg Tablet, 500 MG PO BID PRN for PAIN, #120 Prov:OLIVA SIMMONS APRN 01/18/14 CATHY MALONEY MD Feb 27, 2019 10:40
[2019-02-27 11:00] VITALS: BP 118/88
--- NOTE | 2019-02-27 13:43 | NUR ---
SW following pt for dc planning. Chart reviewed and discussed with RN. Pt is known to SW from previous admission. Pt lives at home with spouse, PT/OT recommends SNU- Pt ambulated 300ft with contact guard assist, has gait instability. Discussed with Pt's Keysha, about SNU and insurance coverage. Discussed that pt appears to be at baseline with ambulation (Other than gait instability) and is verbalizing he wants to go home today. believes pt has been doing better since hospital admission and believes going home might be a better option. Pt has a walker and a cane at home. Pt had used [facility] [employer] [facility] [employer] in the past and would like to use them again. Discussed with Dr. Carlson via phone and agreeable with pt going with home health. Orders for home health faxed to [facility] . SW arranged transportation via [employer] at 1500 per 's request due to Stairs. Left a voice mail to pt's regarding transportation. Discussed with RN.
--- NOTE | 2019-02-27 14:16 | NUR ---
Discharge instructions reviewed with patient's Keysha over the phone. Patient to be discharged per Fire [employer] to get patient into house. Patient discharge with HH, patient's Keysha verb. understanding all instructions and home with HH, instructions printed and in envelope for discharge to go with patient. She received patient prescriptions today after talking with Dr. Carlson. Patient ready for discharge when [employer] arrives.
--- NOTE | 2019-02-27 15:55 | NUR ---
Patient discharge to home per [employer] per carla with discharge instructions in discharge envelope to give to patient's on arrival at home. Patient's Keysha notified of patient discharge time. She states she took patient's clothes and belongings except his slippers home which were sent home with him at discharge.
== END 2019-02-27 10:44 | disposition home health service (06) | DRG 314 ==
LOC: ER 20:07 → 6 SOUTH 02-25 00:05
PROVIDERS: ADMIT Internal Medicine; ATTEND Internal Medicine
DX: I95.9 Hypotension, unspecified (principal); E43 Unspecified severe protein-calorie malnutrition; F02.81 Dementia in other diseases classified elsewhere, unspecified severity, with behavioral disturbance; E87.2 Acidosis; E86.0 Dehydration; K21.9 Gastro-esophageal reflux disease without esophagitis; I12.9 Hypertensive chronic kidney disease with stage 1 through stage 4 chronic kidney disease, or unspecified chronic kidney disease; E78.00 Pure hypercholesterolemia, unspecified; N18.2 Chronic kidney disease, stage 2 (mild); G30.9 Alzheimer's disease, unspecified; E78.5 Hyperlipidemia, unspecified; E11.22 Type 2 diabetes mellitus with diabetic chronic kidney disease; R42 Dizziness and giddiness; R29.6 Repeated falls; K57.90 Diverticulosis of intestine, part unspecified, without perforation or abscess without bleeding; K21.0 Gastro-esophageal reflux disease with esophagitis; D51.0 Vitamin B12 deficiency anemia due to intrinsic factor deficiency; E83.42 Hypomagnesemia; D64.9 Anemia, unspecified; T43.595A Adverse effect of other antipsychotics and neuroleptics, initial encounter; M47.812 Spondylosis without myelopathy or radiculopathy, cervical region; Z90.49 Acquired absence of other specified parts of digestive tract; Z88.0 Allergy status to penicillin; Z86.73 Personal history of transient ischemic attack (TIA), and cerebral infarction without residual deficits; Z82.49 Family history of ischemic heart disease and other diseases of the circulatory system; Z87.891 Personal history of nicotine dependence; Z68.21 Body mass index [BMI] 21.0-21.9, adult; Y92.89 Other specified places as the place of occurrence of the external cause
CPT/HCPCS: 36415; 70450; 71045; 72125; 80048; 80053; 81001; 82553; 83605; 83735; 84484; 85025; 85610; 85730; 87086; 93005; 96360; 96361; J1644; J3475; J7030; 97116; 97530; 97535; 99285-25; G0378